=== PATIENT | female | born 1975 | race Caucasian/White ===

== ENCOUNTER 2019-05-16 09:57 | Emergency (ER) | payer BC ==
--- OUTSIDE RECORDS SUMMARY | 2019-05-16 09:58 | XMS REPORT ---
:1975 [facility] Address [address] [place] [address] Care Team Providers Name Role Phone Unavailable Unavailable Unavailable Payers Payer Name Policy Type Policy Number Effective Date Expiration Date Problems This patient has no known problems. Allergies, Adverse Reactions, Alerts Allergy Name Allergy Status Severity Reaction(s) Onset Inactive Treating Comments Type Date Date Clinician No Known DA Active U 2009- Intolerances 4-12 00:00: 00 Medications This patient has no known medications. Results Test Description Test Time Test Comments Text Results Atomic Results Result Comments - US TRANSVAGINAL W/PELVIS 2018-12-22 09:00:00 Patient Name: MARYLOU MARTINEZ Unit No: [id number] EXAMS: CPT CODE: [id number] US TRANSVAGINAL W/PELVIS 59389 PELVIC ULTRASOUND, 12/22/2018: COMPARISON: Prior pelvic ultrasound dated May 26, 2018 and January 21, 2012 CLINICAL HISTORY: RT OVARIAN CYST TECHNIQUE: Transabdominal and endovaginal scanning was performed. FINDINGS: The uterus measures 9.3 x 4.8 x 5.7 cm. The endometrial cavity is empty with a thickness of 5 mm. No myometrial abnormality is noted. The right ovary measures 5.7 x 3.3 x 3.4 cm and contains a 4.0 x 3.0 x 2.8 cm complex lesion. This lesion contains diffuse low-level homogeneous echoes as well as serpiginous internal areas of increased echogenicity. The lesion in the right ovary is unchanged to minimally increased in size from prior study. No significant Doppler flow was seen within this lesion. Differential possibilities include endometrioma versus dermoid. More aggressive the ovarian process is considered less likely. The left ovary measures 2.9 x 2.3 x 2.8 cm and contains small follicles. No free fluid is evident. CONCLUSION: 4 cm complex right ovarian lesion. Differential diagnostic possibilities include ovarian dermoid and/or endometrioma. More aggressive ovarian process is considered less likely but is not entirely excluded. Consider further assessment with CT of the pelvis to assess for fat within this lesion. at 0900 Reported and signed by: Ziyad Bella MD CC: Technologist: Rony Olivia RDMS, T Probe: [id number] Trnscrbd D/ (09) [email or web address] Orig Print D/T: S: 12/22/2018 (0903) The [facility] NAME: MARYLOU MARTINEZ [facility] Radiology Department PHYS: Va Vaca MD [address] : 1975 AGE: 42 SEX: F [place] [address] LOC: Jackie.RAD PHONE #: [phone] EXAM DATE: 12/22/2018 STATUS: REG CLI FAX #: [phone] RAD NO: [id number] Page 1 Signed Report Patient Name: MARYLOU MARTINEZ Unit No: [id number] EXAMS: CPT CODE: [id number] US TRANSVAGINAL W/PELVIS 35685 <Continued> The [facility] NAME: FARRUKH MARTINEZJEAN-PIERRE Hi Radiology Department PHYS: Va Vaca MD [address] : 1975 AGE: 42 SEX: F [place] [address] LOC: F.RAD PHONE #: [phone] EXAM DATE: 12/22/2018 STATUS: REG CLI FAX #: [phone] RAD NO: [id number] Page 2 Signed Report - US PELVIS COMPLETE 2018-12-22 09:00:00 Patient Name: MARYLOU MARTINEZ Unit No: [id number] EXAMS: CPT CODE: [id number] US PELVIS COMPLETE 36066 PELVIC ULTRASOUND, 12/22/2018: COMPARISON: Prior pelvic ultrasound dated May 26, 2018 and January 21, 2012 CLINICAL HISTORY: RT OVARIAN CYST TECHNIQUE: Transabdominal and endovaginal scanning was performed. FINDINGS: The uterus measures 9.3 x 4.8 x 5.7 cm. The endometrial cavity is empty with a thickness of 5 mm. No myometrial abnormality is noted. The right ovary measures 5.7 x 3.3 x 3.4 cm and contains a 4.0 x 3.0 x 2.8 cm complex lesion. This lesion contains diffuse low-level homogeneous echoes as well as serpiginous internal areas of increased echogenicity. The lesion in the right ovary is unchanged to minimally increased in size from prior study. No significant Doppler flow was seen within this lesion. Differential possibilities include endometrioma versus dermoid. More aggressive the ovarian process is considered less likely. The left ovary measures 2.9 x 2.3 x 2.8 cm and contains small follicles. No free fluid is evident. CONCLUSION: 4 cm complex right ovarian lesion. Differential diagnostic possibilities include ovarian dermoid and/or endometrioma. More aggressive ovarian process is considered less likely but is not entirely excluded. Consider further assessment with CT of the pelvis to assess for fat within this lesion. at 0900 Reported and signed by: Ziyad Bella MD CC: Technologist: Rony Olivia RDMS, T Probe: Trnscrbd D/ (0900) [email or web address] Orig Print D/T: S: 12/22/2018 (0903) [facility] [place] NAME: MARYLOU MARTINEZ Radiology Department PHYS: Va Vaca MD [address] : 1975 AGE: 42 SEX: F [place], [place] [address] LOC: F.RAD PHONE #: [phone] EXAM DATE: 12/22/2018 STATUS: REG CLI FAX #: [phone] RAD NO: [id number] Page 1 Signed Report Patient Name: MARYLOU MARTINEZ Unit No: [id number] EXAMS: CPT CODE: [id number] US PELVIS COMPLETE 98508 <Continued> The [facility] NAME: MARYLOU MARTINEZ Radiology Department PHYS: BOY - Va Daniel MD [address] : 1975 AGE: 42 SEX: F [place], [place] [address] LOC: F.RAD PHONE #: [phone] EXAM DATE: 12/22/2018 STATUS: REG CLI FAX #: [phone] RAD NO: [id number] Page 2 Signed Report
--- NOTE | 2019-05-16 10:35 | ER ---
Nurse's Notes [facility] Name: Leigh Ann Rothman Age: 43 yrs Sex: Female : 1975 Arrival Date: 05/16/2019 Time: 09:58 Bed 24 Private MD: Diagnosis: Acute tonsillitis Presentation: 05/16 10:10 Presenting complaint: Patient states: "I think I have strep throat" Patient reports aj1 sore throat and fever for the past 2 days. Transition of care: patient was not received from another setting of care. Onset of symptoms was 2018. Risk Assessment: Do you want to hurt yourself or someone else? Patient reports no desire to harm self or others. Initial Sepsis Screen: Does the patient meet any 2 criteria? No. Patient's initial sepsis screen is negative. Does the patient have a suspected source of infection? No. Patient's initial sepsis screen is negative. Care prior to arrival: None. 10:10 Method Of Arrival: Ambulatory aj 10:10 Acuity: RODNEY 4 aj1 Triage Assessment: 10:11 General: Appears in no apparent distress. comfortable, Behavior is calm, cooperative, aj1 appropriate for age. Pain: Pain currently is 8 out of 10 on a pain scale. EENT: Reports sore throat. Neuro: Level of Consciousness is awake, alert, obeys commands. Cardiovascular: Patient's skin is warm and dry. Respiratory: Airway is patent Respiratory effort is even, unlabored, Respiratory pattern is regular, symmetrical. 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 - Social history:: Smoking status: Patient/guardian denies using tobacco. - Ebola Screening: : Patient denies travel to an Ebola-affected area in the 21 days before illness onset. Screenin:25 Abuse screen: Denies threats or abuse. Denies injuries from another. Nutritional hb screening: No deficits noted. Tuberculosis screening: No symptoms or risk factors identified. Fall Risk None identified. Assessment: 10:25 General: Appears in no apparent distress. Behavior is calm, cooperative. Pain: Pain hb currently is 6 out of 10 on a pain scale. Neuro: Level of Consciousness is awake, alert, obeys commands, Oriented to person, place, time, situation. Cardiovascular: Capillary refill < 3 seconds Patient's skin is warm and dry. Respiratory: Airway is patent Respiratory effort is even, unlabored, Respiratory pattern is regular, symmetrical, Breath sounds are clear bilaterally. GI: No signs and/or symptoms were reported involving the gastrointestinal system. : No signs and/or symptoms were reported regarding the genitourinary system. EENT: Throat is reddened Reports pain when swallowing. Derm: Skin is pink, warm \\T\\ dry. Musculoskeletal: No signs and/or symptoms reported regarding the musculoskeletal system. Vital Signs: 10:11 BP 133 / 81; Pulse 63; Resp 18; Temp 98.6; Pulse Ox 100% on R/A; Weight 83.91 kg (R); aj1 Height 5 ft. 7 in. (170.18 cm) (R); Pain 8/10; 10:11 Body Mass Index 28.97 (83.91 kg, 170.18 cm) aj1 ED Course: 09:58 Patient arrived in ED. as 10:11 Triage completed. aj1 10:11 Arm band placed on Patient placed in waiting room, Patient notified of wait time. aj1 10:16 Meaghan Ferrara FNP-C is [facility]. kb 10:16 Ruben Singh MD is Attending Physician. kb 10:23 Sherin Chong RN is Primary Nurse. hb 10:23 Strep Sent. hb 10:25 Patient has correct armband on for positive identification. Bed in low position. Call hb light in reach. Side rails up X 1. 10:43 No provider procedures requiring assistance completed. Patient did not have IV access hb during this emergency room visit. Administered Medications: No medications were administered Outcome: 10:34 Discharge ordered by . kb 10:43 Discharged to home ambulatory. hb 10:43 Condition: stable 10:43 Discharge instructions given to patient, Instructed on discharge instructions, follow up and referral plans. medication usage, Demonstrated understanding of instructions, follow-up care, medications, Prescriptions given X 1. 10:44 Patient left the ED. hb Signatures: Meaghan Ferrara FNP-C FNP-Arti Bingham RN RN aj1 Estephania Perez Heather, RN RN hb
--- NOTE | 2019-05-16 10:36 | EDPHYS ---
Physician Documentation [facility] Name: Leigh Ann Rothman Age: 43 yrs Sex: Female : 1975 Arrival Date: 05/16/2019 Time: 09:58 Bed 24 Private MD: ED Physician Ruben Singh HPI: 05/16 10:36 This 43 yrs old Female presents to ER via Ambulatory with complaints of kb InQuicker, Sore Throat. 10:36 The patient presents with sore throat. The patient describes throat pain as constant. kb Onset: The symptoms/episode began/occurred 3 day(s) ago. Severity of symptoms: At their worst the symptoms were moderate, in the emergency department the symptoms are unchanged. Modifying factors: The symptoms are alleviated by nothing, the symptoms are aggravated by swallowing, Patient's oral intake status: good. Associated signs and symptoms: Pertinent positives: fever. The patient has not experienced similar symptoms in the past. The patient has not recently seen a physician. 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 - Social history:: Smoking status: Patient/guardian denies using tobacco. - Ebola Screening: : Patient denies travel to an Ebola-affected area in the 21 days before illness onset. ROS: 10:35 Neck: Negative for injury, pain, and swelling, Cardiovascular: Negative for chest pain, kb palpitations, and edema, Respiratory: Negative for shortness of breath, cough, wheezing, and pleuritic chest pain, Abdomen/GI: Negative for abdominal pain, nausea, vomiting, diarrhea, and constipation, MS/Extremity: Negative for injury and deformity, Skin: Negative for injury, rash, and discoloration, Neuro: Negative for headache, weakness, numbness, tingling, and seizure. 10:35 Constitutional: Positive for fever. 10:35 ENT: Positive for sore throat. Exam: 10:35 Constitutional: This is a well developed, well nourished patient who is awake, alert, kb and in no acute distress. Head/Face: Normocephalic, atraumatic. Neck: Trachea midline, no thyromegaly or masses palpated, and no cervical lymphadenopathy. Supple, full range of motion without nuchal rigidity, or vertebral point tenderness. No Meningismus. Chest/axilla: Normal chest wall appearance and motion. Nontender with no deformity. No lesions are appreciated. Cardiovascular: Regular rate and rhythm with a normal S1 and S2. No gallops, murmurs, or rubs. Normal PMI, no JVD. No pulse deficits. Respiratory: Lungs have equal breath sounds bilaterally, clear to auscultation and percussion. No rales, rhonchi or wheezes noted. No increased work of breathing, no retractions or nasal flaring. Abdomen/GI: Soft, non-tender, with normal bowel sounds. No distension or tympany. No guarding or rebound. No evidence of tenderness throughout. Skin: Warm, dry with normal turgor. Normal color with no rashes, no lesions, and no evidence of cellulitis. MS/ Extremity: Pulses equal, no cyanosis. Neurovascular intact. Full, normal range of motion. Neuro: Awake and alert, GCS 15, oriented to person, place, time, and situation. Cranial nerves II-XII grossly intact. Motor strength 5/5 in all extremities. Sensory grossly intact. Cerebellar exam normal. Normal gait. 10:35 ENT: Posterior pharynx: Airway: normal, no evidence of obstruction, Tonsils: bilaterally enlarged, with erythema, with exudate, Uvula: normal, midline, swelling, that is moderate, erythema, that is moderate, exudate, that is moderate. Vital Signs: 10:11 BP 133 / 81; Pulse 63; Resp 18; Temp 98.6; Pulse Ox 100% on R/A; Weight 83.91 kg (R); aj1 Height 5 ft. 7 in. (170.18 cm) (R); Pain 8/10; 10:11 Body Mass Index 28.97 (83.91 kg, 170.18 cm) aj1 MDM: 10:16 Patient medically screened. kb 10:33 Data reviewed: vital signs, nurses notes. Data interpreted: Pulse oximetry: on room air kb is 100 %. Interpretation: normal. Counseling: I had a detailed discussion with the patient and/or guardian regarding: the historical points, exam findings, and any diagnostic results supporting the discharge/admit diagnosis, lab results, the need for outpatient follow up, a family practitioner, to return to the emergency department if symptoms worsen or persist or if there are any questions or concerns that arise at home. ED course: Antibiotics given based on exam. 05/16 10:13 Order name: Strep; Complete Time: 10:33 aj1 05/16 10:33 Order name: Throat Culture EDMS Administered Medications: No medications were administered Disposition: 17:41 Co-signature as Attending Physician, Ruben Singh MD Did not see or evaluate the ps1 patient. Signing the chart for administrative purposes. Not an endorsement of care provided. . Disposition: 05/16/19 10:34 Discharged to Home. Impression: Acute tonsillitis. - Condition is Stable. - Discharge Instructions: Tonsillitis, [id number]-[id number]. - Prescriptions for Augmentin 875- 125 mg Oral Tablet - take 1 tablet by ORAL route every 12 hours for 10 days; 20 tablet. - Medication Reconciliation Form, Thank You Letter, Antibiotic Education, Prescription Opioid Use form. - Follow up: Emergency Department; When: As needed; Reason: Worsening of condition. Follow up: Private Physician; When: 2 - 3 days; Reason: Recheck today's complaints, Continuance of care, Re-evaluation by your physician. Signatures: Dispatcher [employer] EDKS Meaghan Ferrara, JAMIA CASPERP-Arti Bingham, RN RN aj1 Sherin Chong, Ruben Alas RN, MD MD ps1 Corrections: (The following items were deleted from the chart) 10:44 10:34 05/16/2019 10:34 Discharged to Home. Impression: Acute tonsillitis. Condition is hb Stable. Forms are Medication Reconciliation Form, Thank You Letter, Antibiotic Education, Prescription Opioid Use. Follow up: Emergency Department; When: As needed; Reason: Worsening of condition. Follow up: Private Physician; When: 2 - 3 days; Reason: Recheck today's complaints, Continuance of care, Re-evaluation by your physician. kb
[2019-05-16 11:37] VITALS: BP 133/81; TEMP 98.6; O2SAT 100
== END 2019-05-16 10:44 | disposition home or self-care (01) ==
LOC: ER 09:57
DX: J03.90 Acute tonsillitis, unspecified (principal); E03.9 Hypothyroidism, unspecified; K21.9 Gastro-esophageal reflux disease without esophagitis
CPT/HCPCS: 87070; 87081; 99283

== ENCOUNTER 2019-06-19 04:40 | Inpatient (IN) | payer BC ==
--- OUTSIDE RECORDS SUMMARY | 2019-06-19 04:42 | XMS REPORT ---
:1975 [facility] Address [address] [place] [address] Care Team Providers Name Role Phone Unavailable [...] 09:00:00 Patient Name: MARYLOU MARTINEZ Unit No: [id number] EXAMS: CPT CODE: [id number] US TRANSVAGINAL W/PELVIS 33359 PELVIC ULTRASOUND, 12/22/2018: COMPARISON: Prior pelvic ultrasound [...] CC: Technologist: Rony Olivia RDMS, T Probe: [id number] Trnscrbd D/ (0900) [email or web address] Orig Print D/T: S: 12/22/2018 (0903) [facility] [place] [facility] NAME: MARTINEZMARYLOU L Radiology Department PHYS: Va Vaca MD [address] : 1975 AGE: 42 SEX: F [place] [address] LOC: ArabellaRAD PHONE #: [phone] EXAM DATE: 12/22/2018 STATUS: REG CLI FAX #: [phone] RAD NO: [id number] Page 1 Signed Report Patient Name: MARYLOU MARTINEZ Unit No: [id number] EXAMS: CPT CODE: [id number] US TRANSVAGINAL W/PELVIS 21443 <Continued> [facility] NAME: MAXIM MARTINEZANGEL Hi Radiology Department PHYS: Va Vaca MD [address] : 1975 AGE: 42 SEX: F [place] [address] LOC: Jackie.RAD PHONE #: [phone] EXAM DATE: 12/22/2018 STATUS: REG CLI FAX #: [phone] RAD NO: [id number] Page 2 Signed Report - US PELVIS COMPLETE 2018-12-22 09:00:00 Patient Name: MARYLOU MARTINEZ Unit No: [id number] EXAMS: CPT CODE: [id number] US PELVIS COMPLETE 49776 PELVIC ULTRASOUND, 12/22/2018: COMPARISON: Prior pelvic ultrasound [...] Bella MD CC: Technologist: Rony Olivia RDMS, RVT Probe: Trnscrbd D/ (09) [email or web address] Orig Print D/T: S: 12/22/2018 (0903) [facility] NAME: MARYLOU MARTINEZ Radiology Department PHYS: BOY - Va Daniel MD [address] : 1975 AGE: 42 SEX: F [place], [place] [address] LOC: ArabellaRAD PHONE #: [phone] EXAM DATE: 12/22/2018 STATUS: REG CLI FAX #: [phone] RAD NO: [id number] Page 1 Signed Report Patient Name: MARYLOU MARTINEZ Unit No: [id number] EXAMS: CPT CODE: [id number] US PELVIS COMPLETE 22232 <Continued> [facility] NAME: MARYLOU MARTINEZ Radiology Department PHYS: Va Vaca MD [address] : 1975 AGE: 42 SEX: F [place], [place] [address] LOC: ArabellaRAD PHONE #: [phone] EXAM DATE: 12/22/2018 STATUS: REG CLI FAX #: [phone] RAD NO: [id number] Page 2 Signed Report
[2019-06-19 06:07] LABS: Urine Blood 1+ (NEG); Urine Glucose NEGATIVE (NEG); Urine Protein TRACE (NEG); Urine pH 7.5 (5.0-7.0)
[2019-06-19] MEDS ORDERED: ONDANSETRON 4 MG/2 ML VIAL ONE (06:38)
[2019-06-19] MEDS ORDERED: NA CHLORIDE 0.9% 0 ML ONE (06:38)
[2019-06-19] MEDS ORDERED: MORPHINE 4 MG/ML SYR ONE ×2 (06:38→12:07)
[2019-06-19 06:49] LABS: Absolute Lymphocytes (CBC) 0.6 K/uL (0.7-4.9); Basophils % 0.6 % (0-1.3); Hematocrit 39.5 % (36.0-45.0); Lymphocytes % 4.6 % (15.3-44.8); MPV 7.5 fL (7.6-11.3); RBC Red Blood Cell Count 4.32 M/uL (3.86-4.86)
[2019-06-19 06:56] LABS: Urine Bacteria >50 /HPF (<20); Urine Culture Reflex Order NOT NEEDED; Urine Mucus 3+ /HPF (NONE SEEN)
[2019-06-19 07:20] LABS: Bilirubin Direct 0.1 mg/dL (0-0.2); Bilirubin Total 0.5 mg/dL (0.2-1.0); Potassium 3.8 mmol/L (3.5-5.1); Protein, Total 7.4 g/dL (6.4-8.2)
--- NOTE | 2019-06-19 08:08 | RAD REPORT ---
EXAM DESCRIPTION: CT - Abdomen Pelvis W Contrast - 06/19/2019 7:36 am CLINICAL HISTORY: ABD PAIN, back pain, history of renal cancer, prior and gastric sleeve COMPARISON: Abdomen Pelvis W Contrast dated 12/03/2017; Transvaginal Study Probe dated 05/26/2018; Pelvis Complete dated 05/26/2018; Abdomen Exam Complete dated 05/26/2018 TECHNIQUE: Biphasic, helical CT imaging of the abdomen and pelvis was performed following 100 ml non -ionic IV contrast. No oral contrast. All CT scans are performed using dose optimization technique as appropriate and may include automated exposure control or mA/KV adjustment according to patient size. FINDINGS: No suspicious findings in the lung bases. The liver, spleen, and pancreas show no suspicious findings. Gallbladder and biliary tree are also wi thout suspicious finding. Postsurgical changes are present to the lower pole left kidney, site renal cell carcinoma removal. Th ere is subtle heterogeneity of enhancement of the left renal parenchyma. A mild congested or edematou s appearance is seen to the fat in the left renal hilum. Small 12 millimeter low-density mass along t he capsule posterior mid left kidney noted and similar to comparison. There is no hydronephrosis. The re does appear to be mild edema and stranding along the brown of the left renal pelvis and ureter. No new or enlarging solid mass of either kidney. Urinary bladder is mostly contracted. No bladder calcu li. Punctate air densities are present along the wall of the nondependent portion of the bladder. No adrenal abnormalities. No uterine abnormality seen. Left ovary is unremarkable. The right ovary is enlarged. Prior 2018 ultr asound imaging showed a 4-4.5 centimeter heterogeneous mass. Hemorrhagic cyst was suspected. However, this mass has not resolved. Size has remained stable over 18 months. This would favor a benign ovari an mass etiology. Gastric sleeve surgical changes are noted. A small hiatal hernia is present. No dilated large or smal l bowel loops. No appendicitis findings. No free air or pneumatosis otherwise noted. No hernia, mas s or bulky lymphadenopathy. No fracture or acute bone finding. No suspicion for bony metastatic disease. Disc bulge at L5-S1 cont acts both S1 nerve roots. No central spinal stenosis or significant foraminal encroachment at this le arias. Midline and right-sided disc herniation is present at L4-5 flattening the thecal sac. No central spinal stenosis. IMPRESSION: Left kidney and adjacent fatty tissues show findings suspicious for an early pyelonephri tis and ureteritis. Air in the urinary bladder could indicate bladder infection. This air may have also been introduced i f the patient underwent any in- and out catheterization procedure. Correlation is needed with such procedures and lab lab findings of cystitis, ureteritis or pyelonephr itis. Approximately 4-4.5 centimeter right ovarian mass has not changed in the 18 months since November 2017 im aging. Imaging findings are nonspecific. Stability over this interval would favor a benign process. Midline and right-sided L4-5 disc herniation and prominent disc bulge at L5-S1.
[2019-06-19] MEDS ORDERED: CEFTRIAXONE/SWI 1gm 1 GM/10 ML SYR ONE (08:18)
[2019-06-19] MEDS ORDERED: NA CHLORIDE 0.9% 1,000 ML ONE ×3 (08:26→12:01)
--- NOTE | 2019-06-19 09:00 | ER ---
Nurse's Notes [facility] Name: Leigh Ann Rothman Age: 43 yrs Sex: Female : 1975 Arrival Date: 06/19/2019 Time: 04:43 Bed 5 Private MD: Elsa Dickerson K Diagnosis: Acute tubulo-interstitial nephritis Presentation: 06/19 04:45 Presenting complaint: Patient states: that 2 days ago she started to have lower back fc pain. Then this am she woke up with lower back pain, left lower abd pain and a headache. Thinks she may have the flu. Denies any N/V/D. Transition of care: patient was not received from another setting of care. Onset of symptoms was June 17, 2019. Risk Assessment: Do you want to hurt yourself or someone else? Patient reports no desire to harm self or others. Initial Sepsis Screen: Does the patient meet any 2 criteria? No. Patient's initial sepsis screen is negative. Does the patient have a suspected source of infection? No. Patient's initial sepsis screen is negative. Care prior to arrival: Medication(s) given: Motrin, 600 mg, at 0400. 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 - Social history:: Smoking status: Patient/guardian denies using tobacco, Patient uses alcohol, every other day. - Ebola Screening: : Patient negative for fever greater than or equal to 101.5 degrees Fahrenheit, and additional compatible Ebola Virus Disease symptoms Patient denies exposure to infectious person Patient denies travel to an Ebola-affected area in the 21 days before illness onset. Screenin:45 Abuse screen: Denies threats or abuse. Nutritional screening: No deficits noted. fc Tuberculosis screening: No symptoms or risk factors identified. Fall Risk None identified. Assessment: 04:59 General: Appears in no apparent distress. uncomfortable, Behavior is calm, cooperative, jd3 appropriate for age. Pain: Complains of pain in posterior aspect of left lateral abdomen and anterior aspect of left lateral abdomen Quality of pain is described as sharp. Neuro: Level of Consciousness is awake, alert, obeys commands, Oriented to person, place, time, situation, Reports headache. Cardiovascular: Capillary refill < 3 seconds Patient's skin is warm and dry. Respiratory: Airway is patent Respiratory effort is even, unlabored, Respiratory pattern is regular, symmetrical, Breath sounds are clear bilaterally. Denies cough, shortness of breath. GI: Abdomen is round non-distended, Abd is soft Abdomen is tender to palpation in left upper quadrant and left lower quadrant Patient currently denies diarrhea, nausea, vomiting. : No signs and/or symptoms were reported regarding the genitourinary system. EENT: Denies nasal congestion, nasal discharge. Derm: Skin is intact, Skin is dry, Skin is normal, Skin temperature is warm. Musculoskeletal: Circulation, motion, and sensation intact. Range of motion: intact in all extremities. 05:52 Reassessment: Patient appears in no apparent distress at this time. No changes from jd3 previously documented assessment. Patient and/or family updated on plan of care and expected duration. Pain level reassessed. Patient is alert, oriented x 3, equal unlabored respirations, skin warm/dry/pink. 06:47 Reassessment: Patient appears in no apparent distress at this time. Patient and/or lp1 family updated on plan of care and expected duration. Pain level reassessed. Patient is alert, oriented x 3, equal unlabored respirations, skin warm/dry/pink. awaiting lab results and CT scan. 08:27 Reassessment: Patient appears in no apparent distress at this time. No changes from tw2 previously documented assessment. Patient and/or family updated on plan of care and expected duration. Pain level reassessed. Patient is alert, oriented x 3, equal unlabored respirations, skin warm/dry/pink. 09:45 Reassessment: Pt noted to be crying, reports LLQ abdominal pain rated 9/10, ERP jl7 notified, see MAR for orders. 10:16 Reassessment: Patient appears in no apparent distress at this time. No changes from tw2 previously documented assessment. Patient and/or family updated on plan of care and expected duration. Pain level reassessed. Patient is alert, oriented x 3, equal unlabored respirations, skin warm/dry/pink. 11:00 Reassessment: Patient appears in no apparent distress at this time. No changes from tw2 previously documented assessment. Patient and/or family updated on plan of care and expected duration. Pain level reassessed. Patient is alert, oriented x 3, equal unlabored respirations, skin warm/dry/pink. 12:00 Reassessment: Patient appears in no apparent distress at this time. Patient is alert, ca1 oriented x 3, equal unlabored respirations, skin warm/dry/pink. Pt ambulated to restroom. 13:00 Reassessment: Patient appears in no apparent distress at this time. Patient and/or ca1 family updated on plan of care and expected duration. Pain level reassessed. Patient is alert, oriented x 3, equal unlabored respirations, skin warm/dry/pink. 14:00 Reassessment: Patient appears in no apparent distress at this time. Patient and/or ca1 family updated on plan of care and expected duration. Pain level reassessed. Patient is alert, oriented x 3, equal unlabored respirations, skin warm/dry/pink. 15:00 Reassessment: No changes from previously documented assessment. Patient and/or family ca1 updated on plan of care and expected duration. Pain level reassessed. Patient is alert, oriented x 3, equal unlabored respirations, skin warm/dry/pink. Vital Signs: 04:45 BP 126 / 78; Pulse 88; Resp 18; Temp 101.4(O); Pulse Ox 98% on R/A; Weight 83.91 kg fc (R); Height 5 ft. 6 in. (167.64 cm) (R); Pain 8/10; 05:52 BP 119 / 79; Pulse 79; Resp 18 S; Pulse Ox 97% on R/A; jd3 06:47 BP 116 / 75; Pulse 73; Resp 17 S; Pulse Ox 96% on R/A; lp1 07:38 BP 127 / 92; Pulse 73; Resp 17; Pulse Ox 99% on R/A; tw2 08:26 BP 111 / 70; Pulse 77; Resp 17; Temp 99.2(O); Pulse Ox 100% on R/A; tw2 09:30 BP 107 / 72; Pulse 76; Resp 17; Pulse Ox 99% on R/A; tw2 10:34 BP 122 / 89; Pulse 76; Resp 18 S; Temp 101(O); Pulse Ox 99% on R/A; ca1 11:05 BP 116 / 81; Pulse 83; Resp 17; Temp 101.9(O); Pulse Ox 100% on R/A; ca1 12:00 BP 120 / 66; Pulse 89; Resp 17 S; Temp 101.4(A); Pulse Ox 100% on R/A; ca1 13:00 BP 102 / 67; Pulse 84; Resp 17 S; Pulse Ox 98% on R/A; ca1 14:00 BP 101 / 67; Pulse 97; Resp 17 S; Pulse Ox 98% on R/A; ca1 15:00 BP 95 / 56; Pulse 70; Resp 17 S; Temp 98.5(O); Pulse Ox 97% on R/A; ca1 15:40 Temp 98.5(O); ca1 04:45 Body Mass Index 29.86 (83.91 kg, 167.64 cm) fc ED Course: 04:43 Patient arrived in ED. es 04:44 Elsa Dickerson MD is Private Physician. es 04:45 Arm band placed on Patient placed in an exam room, on a stretcher. fc 04:45 Patient has correct armband on for positive identification. Placed in gown. Bed in low fc position. Call light in reach. Pulse ox on. NIBP on. 04:45 No provider procedures requiring assistance completed. fc 04:57 Triage completed. fc 04:59 Chencho Meyers, ESTEFANIA is Primary Nurse. jd3 05:19 Ruben Singh MD is Attending Physician. ps1 06:15 Cachorro Henry PA is PHCP. jr8 06:30 Missed attempt(s): 22 gauge Bleeding controlled, band aid applied, catheter tip intact. fc 06:38 Inserted 18 gauge 10 cm midline to right upper arm basilic vein on first attempt. Line fc with good blood return and flushes well. 06:45 Radiology exam delayed due to lab results not completed at this time. (BUN/Creatinine). kw1 07:00 Report given to Fay MAC. jd3 07:44 CT Abd/Pelvis - IV Contrast Only In Process Unspecified. EDMS 08:27 Asad Woo DO is Hospitalizing Provider. jr8 10:34 Patient admitted, IV remains in place. ca1 Administered Medications: 06:45 Drug: NS 0.9% 1000 ml Route: IV; Rate: 1000 ml; Site: right upper arm; lp1 06:46 Drug: morphine 4 mg Route: IVP; Site: right upper arm; lp1 10:32 Follow up: Response: No adverse reaction; Pain is decreased; RASS: Alert and Calm (0) ca1 06:46 Drug: Zofran 4 mg Route: IVP; Site: right upper arm; lp1 10:33 Follow up: Response: No adverse reaction; Nausea is decreased ca1 08:20 Drug: Rocephin 1 grams Route: IV; Rate: calculated rate; Site: right upper arm; tw2 10:33 Follow up: Response: No adverse reaction; IV Status: Completed infusion ca1 08:26 Drug: NS 0.9% 1000 ml Route: IV; Rate: 100 ml/hr; Site: right upper arm; tw2 10:33 Follow up: Response: No adverse reaction; IV Status: Completed infusion; IV Intake: ca1 1000ml 15:52 Follow up: IV Status: Infusion continued upon admission ca1 09:53 Drug: Demerol 25 mg Route: IVP; Site: right upper arm; jl7 10:32 Follow up: Response: No adverse reaction; Pain is decreased; RASS: Alert and Calm (0) ca1 10:32 Drug: Tylenol 1000 mg Route: PO; ca1 12:16 Follow up: Response: No adverse reaction; Temperature is unchanged ca1 11:30 Drug: NS 0.9% 1000 ml Route: IV; Rate: 1000 ml; Site: right antecubital; ca1 12:30 Follow up: Response: No adverse reaction; IV Status: Completed infusion; IV Intake: ca1 1000ml 12:03 Drug: Ibuprofen 600 mg Route: PO; ca1 15:40 Follow up: Temp 98.5 Oral; Response: No adverse reaction; Temperature is decreased ca1 12:05 Drug: morphine 4 mg {Note: RASS - 0.} Route: IVP; Site: right antecubital; ca1 15:40 Follow up: Response: No adverse reaction; Pain is decreased; RASS: Alert and Calm (0) ca1 Intake: 10:33 IV: 1000ml; Total: 1000ml. ca1 12:30 IV: 1000ml; Total: 2000ml. ca1 Outcome: 08:27 Decision to Hospitalize by Provider. lalito 15:39 Admitted to Med/surg accompanied by tech, via wheelchair, room 207, with chart, Report ca1 called to ESTEFANIA Tariq 15:39 Condition: stable 15:39 Instructed on the need for admit. 15:51 Patient left the ED. ca1 Signatures: Dispatcher [employer] EDHortensia Queen Felicia, RN RN fc Dulce Munoz RN RN lp1 Cachorro Henry PA PA jr8 Kelsea Nieto RN RN tw2 Fay Scales RN RN jl7 Chencho Meyers RN RN jd3 Ruben Singh MD MD ps1 Judit Blackburn kw1 Joycelyn Doll RN RN ca1 Corrections: (The following items were deleted from the chart) 09:54 09:53 Demerol 25 mg IVP in right antecubital jl7 jl7 15:26 15:00 BP 95 / 56; Pulse 70bpm; Resp 17bpm; Spontaneous; Pulse Ox 97% RA; ca1 ca1
--- NOTE | 2019-06-19 09:04 | EDPHYS ---
Physician Documentation [facility] Name: Leigh Ann Rothman Age: 43 yrs Sex: Female : 1975 Arrival Date: 06/19/2019 Time: 04:43 Bed 5 Private MD: Elsa Dickerson K ED Physician Ruben Singh HPI: 06/19 07:02 This 43 yrs old Female presents to ER via Ambulatory with complaints of jr8 Headache, Abdominal Pain, Back Pain. 07:02 The patient presents with abdominal pain in the left lower quadrant. Onset: The jr8 symptoms/episode began/occurred acutely, yesterday. The symptoms radiate to left back, the left flank. Associated signs and symptoms: Pertinent positives: fever, nausea. The symptoms are described as stabbing. Modifying factors: The symptoms are alleviated by nothing, the symptoms are aggravated by nothing. Severity of pain: At its worst the pain was moderate in the emergency department the pain is unchanged. The patient has not experienced similar symptoms in the past. The patient has not recently seen a physician. 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 - Social history:: Smoking status: Patient/guardian denies using tobacco, Patient uses alcohol, every other day. - Ebola Screening: : Patient negative for fever greater than or equal to 101.5 degrees Fahrenheit, and additional compatible Ebola Virus Disease symptoms Patient denies exposure to infectious person Patient denies travel to an Ebola-affected area in the 21 days before illness onset. ROS: 07:02 Constitutional: Positive for chills, fever, malaise. jr8 07:02 Abdomen/GI: Positive for abdominal pain, nausea, Negative for vomiting, diarrhea, constipation, abdominal distension, hematemesis, black/tarry stool, rectal pain, rectal bleeding. 07:02 Back: Positive for flank pain, on the left. 07:02 All other systems are negative. Exam: 07:02 Eyes: Pupils equal round and reactive to light, extra-ocular motions intact. Lids and jr8 lashes normal. Conjunctiva and sclera are non-icteric and not injected. Cornea within normal limits. Periorbital areas with no swelling, redness, or edema. ENT: Nares patent. No nasal discharge, no septal abnormalities noted. Tympanic membranes are normal and external auditory canals are clear. Oropharynx with no redness, swelling, or masses, exudates, or evidence of obstruction, uvula midline. Mucous membranes moist. Neck: Trachea midline, no thyromegaly or masses palpated, and no cervical lymphadenopathy. Supple, full range of motion without nuchal rigidity, or vertebral point tenderness. No Meningismus. Cardiovascular: Regular rate and rhythm with a normal S1 and S2. No gallops, murmurs, or rubs. Normal PMI, no JVD. No pulse deficits. Respiratory: Lungs have equal breath sounds bilaterally, clear to auscultation and percussion. No rales, rhonchi or wheezes noted. No increased work of breathing, no retractions or nasal flaring. Skin: Warm, dry with normal turgor. Normal color with no rashes, no lesions, and no evidence of cellulitis. MS/ Extremity: Pulses equal, no cyanosis. Neurovascular intact. Full, normal range of motion. Neuro: Awake and alert, GCS 15, oriented to person, place, time, and situation. Cranial nerves II-XII grossly intact. Motor strength 5/5 in all extremities. Sensory grossly intact. Cerebellar exam normal. Normal gait. 07:02 Back: No spinal tenderness. No costovertebral tenderness. Full range of motion. 07:02 Abdomen/GI: Inspection: obese Bowel sounds: active, all quadrants, Palpation: soft, in all quadrants, mild abdominal tenderness, in the anterior aspect of left lateral abdomen and left lower quadrant, mass, is not appreciated, rebound tenderness, is not appreciated, voluntary guarding, is not appreciated, involuntary guarding, is not appreciated, no appreciated organomegaly, Indicators: McBurney's point is not tender, Ivory's sign is negative, Rovsing's sign is negative, Liver: tenderness, is not appreciated. Vital Signs: 04:45 BP 126 / 78; Pulse 88; Resp 18; Temp 101.4(O); Pulse Ox 98% on R/A; Weight 83.91 kg fc (R); Height 5 ft. 6 in. (167.64 cm) (R); Pain 8/10; 05:52 BP 119 / 79; Pulse 79; Resp 18 S; Pulse Ox 97% on R/A; jd3 06:47 BP 116 / 75; Pulse 73; Resp 17 S; Pulse Ox 96% on R/A; lp1 07:38 BP 127 / 92; Pulse 73; Resp 17; Pulse Ox 99% on R/A; tw2 08:26 BP 111 / 70; Pulse 77; Resp 17; Temp 99.2(O); Pulse Ox 100% on R/A; tw2 09:30 BP 107 / 72; Pulse 76; Resp 17; Pulse Ox 99% on R/A; tw2 10:34 BP 122 / 89; Pulse 76; Resp 18 S; Temp 101(O); Pulse Ox 99% on R/A; ca1 11:05 BP 116 / 81; Pulse 83; Resp 17; Temp 101.9(O); Pulse Ox 100% on R/A; ca1 12:00 BP 120 / 66; Pulse 89; Resp 17 S; Temp 101.4(A); Pulse Ox 100% on R/A; ca1 13:00 BP 102 / 67; Pulse 84; Resp 17 S; Pulse Ox 98% on R/A; ca1 14:00 BP 101 / 67; Pulse 97; Resp 17 S; Pulse Ox 98% on R/A; ca1 15:00 BP 95 / 56; Pulse 70; Resp 17 S; Temp 98.5(O); Pulse Ox 97% on R/A; ca1 15:40 Temp 98.5(O); ca1 04:45 Body Mass Index 29.86 (83.91 kg, 167.64 cm) fc MDM: 06:15 Patient medically screened. jr8 07:04 Differential diagnosis: diverticulitis, non-specific abd pain, Pyelonephritis, jr8 Ureterolithiasis, urinary tract infection, TOA, Colitis, PID. Data reviewed: vital signs, nurses notes, lab test result(s), radiologic studies, CT scan. Data interpreted: Pulse oximetry: on room air is 96 %. Interpretation: normal. Counseling: I had a detailed discussion with the patient and/or guardian regarding: the historical points, exam findings, and any diagnostic results supporting the discharge/admit diagnosis, lab results, radiology results. 08:25 Physician consultation: Asad Solomonbindu was called at 08:27, was contacted at 08:27, jr8 regarding admission, to the telemetry unit. consult, patient's condition, and will see patient. 06/19 05:22 Order name: Urine Dipstick--Ancillary (enter results); Complete Time: 06:15 cm6 06/19 05:22 Order name: Urine --Ancillary (enter results); Complete Time: 06:15 cm6 06/19 05:22 Order name: Urine Microscopic Only; Complete Time: 07:00 cm6 06/19 05:23 Order name: Urine Culture cm6 06/19 06:16 Order name: Basic Metabolic Panel; Complete Time: 07:25 jr8 06/19 06:16 Order name: CBC with Diff; Complete Time: 10:27 8 06/19 06:16 Order name: Creatinine for Radiology; Complete Time: 07:04 06/19 06:16 Order name: Hepatic Function; Complete Time: 07:25 jr8 06/19 06:16 Order name: Lipase; Complete Time: 07:25 8 06/19 06:17 Order name: CT Abd/Pelvis - IV Contrast Only; Complete Time: 08:16 jr8 06/19 09:16 Order name: Lactate jr8 06/19 09:16 Order name: Procalcitonin [facility] 06/19 10:04 Order name: Lactate [facility] 06/19 10:13 Order name: Manual Differential; Complete Time: 10:27 EDMS 06/19 05:22 Order name: Urine Dipstick-Ancillary (obtain specimen); Complete Time: 05:28 cm6 06/19 06:16 Order name: IV Saline Lock; Complete Time: 06:47 jr06/19 06:16 Order name: Labs collected and sent; Complete Time: 06:47 jr06/19 10:59 Order name: Diet Renal; Complete Time: 11:00 ca1 Administered Medications: 06:45 Drug: NS 0.9% 1000 ml Route: IV; Rate: 1000 ml; Site: right upper arm; lp1 06:46 Drug: morphine 4 mg Route: IVP; Site: right upper arm; lp1 10:32 Follow up: Response: No adverse reaction; Pain is decreased; RASS: Alert and Calm (0) ca1 06:46 Drug: Zofran 4 mg Route: IVP; Site: right upper arm; lp1 10:33 Follow up: Response: No adverse reaction; Nausea is decreased ca1 08:20 Drug: Rocephin 1 grams Route: IV; Rate: calculated rate; Site: right upper arm; tw2 10:33 Follow up: Response: No adverse reaction; IV Status: Completed infusion ca1 08:26 Drug: NS 0.9% 1000 ml Route: IV; Rate: 100 ml/hr; Site: right upper arm; tw2 10:33 Follow up: Response: No adverse reaction; IV Status: Completed infusion; IV Intake: ca1 1000ml 15:52 Follow up: IV Status: Infusion continued upon admission ca1 09:53 Drug: Demerol 25 mg Route: IVP; Site: right upper arm; jl7 10:32 Follow up: Response: No adverse reaction; Pain is decreased; RASS: Alert and Calm (0) ca1 10:32 Drug: Tylenol 1000 mg Route: PO; ca1 12:16 Follow up: Response: No adverse reaction; Temperature is unchanged ca1 11:30 Drug: NS 0.9% 1000 ml Route: IV; Rate: 1000 ml; Site: right antecubital; ca1 12:30 Follow up: Response: No adverse reaction; IV Status: Completed infusion; IV Intake: ca1 1000ml 12:03 Drug: Ibuprofen 600 mg Route: PO; ca1 15:40 Follow up: Temp 98.5 Oral; Response: No adverse reaction; Temperature is decreased ca1 12:05 Drug: morphine 4 mg {Note: RASS - 0.} Route: IVP; Site: right antecubital; ca1 15:40 Follow up: Response: No adverse reaction; Pain is decreased; RASS: Alert and Calm (0) ca1 Disposition: 19:01 Co-signature as Attending Physician, Ruben Singh MD Available for consultation at ps1 all times. Signing chart for administrative purposes. Not an endorsement of care. . Disposition: 06/19/19 08:27 Hospitalization ordered by Asad Woo for Inpatient Admission. Preliminary diagnosis is Acute tubulo-interstitial nephritis. - Bed requested for Telemetry/MedSurg (Inpatient). - Status is Inpatient Admission. ca1 - Condition is Stable. - Problem is new. - Symptoms have improved. UTI on Admission? Yes Signatures: Dispatcher [employer] EDDorcas Genao, RN RN dw Sarah Sanchez, RN RN fc Janet Carreno, RN RN ss Dulce Munoz, RN RN lp1 Cachorro Henry, PA PA jr8 Kelsea Nieto, RN RN tw2 Fay Scales, RN RN jl7 Ruben Singh MD MD ps1 Joycelyn Doll RN RN ca1 Justin, Amber cm6 Corrections: (The following items were deleted from the chart) 12:12 08:27 Hospitalization Ordered by Asad Woo DO for Inpatient Admission. Preliminary ss diagnosis is Acute tubulo-interstitial nephritis. Bed requested for Telemetry/MedSurg (Inpatient). Status is Inpatient Admission. Condition is Stable. Problem is new. Symptoms have improved. UTI on Admission? Yes. jr8 15:28 12:12 06/19/2019 08:27 Hospitalization Ordered by Asad Woo DO for Inpatient dw Admission. Preliminary diagnosis is Acute tubulo-interstitial nephritis. Bed requested for [facility] ER HOLD. Status is Inpatient Admission. Condition is Stable. Problem is new. Symptoms have improved. UTI on Admission? Yes. ss 15:51 15:28 06/19/2019 08:27 Hospitalization Ordered by Asad Woo DO for Inpatient ca1 Admission. Preliminary diagnosis is Acute tubulo-interstitial nephritis. Bed requested for Telemetry/MedSurg (Inpatient). Status is Inpatient Admission. Condition is Stable. Problem is new. Symptoms have improved. UTI on Admission? Yes. dw
[2019-06-19] MEDS ORDERED: MEPERIDINE HCL 25 MG/0.5 ML ONE (09:50)
[2019-06-19 10:12] LABS: Blood Morphology Comment NOT SEEN (NOT SEEN); Platelet Estimate ADEQ
[2019-06-19] MEDS ORDERED: ACETAMINOPHEN 500 MG TAB ONE (10:33)
--- NOTE | 2019-06-19 10:40 | P.HP ---
Certification for Inpatient Patient admitted to: Inpatient With expected LOS: >2 Midnights Patient will require the following post-hospital care: None Practitioner: I am a practitioner with admitting privileges, knowledge of patient current condition, hospital course, and medical plan of care. Services: Services provided to patient in accordance with Admission requirements found in Title 42 Section 412.3 of the Code of Federal Regulations Patient History Date of Service: 06/19/19 Primary Care Provider: Dr. Dickerson, [facility] Reason for admission: Left flank pain History of Present Illness: 43-year-old female with history of hypothyroidism, GERD, and prior left renal cell carcinoma with partial nephrectomy. Patient reported left flank pain over the last week. Patient with history of UTI in the past. Patient also reported some dysuria and fever. She thought her symptoms would resolve but worsened. She came to the ER for further evaluation. In the ER patient was febrile. Vital signs stable. White count 13.7, hemoglobin 13. Sodium 138, potassium 3.8, BUN of 9, creatinine 0.71 with a GFR of 86. Glucose 94. Urinalysis showed evidence of bacteria. CT scan shows early pyelonephritis and ureteritis on the left side. CT also showed 4.5 cm right ovarian mass unchanged since 18 months ago. This is likely a benign process. Midline and right-sided L4-5 disc herniation. Patient was given IV fluid bolus and started IV fluids. IV antibiotic therapy also initiated. Patient admitted for further evaluation and treatment. When I saw the patient ER, pain improved. Patient did not appear septic. Allergies No Known Allergies Allergy (Unverified 03/31/17 14:22) Home medications list reviewed: Yes - Past Medical/Surgical History Diabetic: No -: Hypothyroidism -: GERD -: History left renal cell carcinoma with partial nephrectomy -: History of gastric sleeve -: Left partial nephrectomy -: -: Gastric sleeve Psychosocial/ Personal History: Patient is . She currently works. - Family History Mother -: Cancer (Thyroid cancer) - Social History Smoking Status: Never smoker Alcohol use: Yes CD- Drugs: No Caffeine use: Yes Place of Residence: Home Review of Systems General: Fever, Chills, As per HPI Eyes: Unremarkable ENT: Unremarkable Respiratory: Unremarkable Cardiovascular: Unremarkable Gastrointestinal: Abdominal Pain, As per HPI Genitourinary: Dysuria, As per HPI Musculoskeletal: Back Pain, As per HPI Integumentary: Unremarkable Neurological: Unremarkable Lymphatics: Unremarkable Physical Examination - Physical Exam General: Alert, In no apparent distress, Oriented x3, Cooperative HEENT: Atraumatic, Normocephalic, Mucous membr. moist/pink Neck: Supple Respiratory: Clear to auscultation bilaterally, Normal air movement Cardiovascular: Normal pulses, Regular rate/rhythm Gastrointestinal: Normal bowel sounds, Soft and benign, Non-distended, No masses , No rebound, No guarding, Tenderness (Left flank pain) Musculoskeletal: No warmth, Tenderness (Left flank pain and back pain) Integumentary: Other (As above) Neurological: Normal speech, Normal strength at 5/5 x4 extr, Normal tone, Normal affect - Studies Laboratory Data (last 24 hrs) 06/19/19 06:37: Creatinine 0.71 06/19/19 06:37: WBC 13.7 H, Hgb 13.3, Hct 39.5, Plt Count 306 06/19/19 06:37: Sodium 138, Potassium 3.8, BUN 9, Creatinine 0.74, Glucose 94, Total Bilirubin 0.5, AST 21, ALT 19, Alkaline Phosphatase 96, Lipase 89 Assessment and Plan - Plan Impression: Left pyelonephritis with ureteritis History left renal cell carcinoma with prior resection Hypothyroidism GERD with history of gastric sleeve 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 Await blood and urine culture results anticipate improvement over the next 2-3 days. Will monitor closely. History left renal cell carcinoma with prior resection: Patient with prior surgery. Continue as above. Hypothyroidism: Restart home medication. GERD with history of gastric sleeve: Continue home medication. 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 Patient may follow up with orthopedics or pain management as an outpatient. 4.5 cm right ovarian mass unchanged since 2018 likely hemorrhagic cyst: This is likely benign. Will recommend gynecology evaluation as an outpatient to further evaluate. Discharge Plan: Home Plan to discharge in: 72 Hours - Advance Directives Does patient have a Living Will: No Does patient have a Durable POA for Healthcare: No - Code Status/Comfort Care Code Status Assessed: Yes (Patient is full code) Time Spent Managing Pts Care (In Minutes): 55
[2019-06-19 11:20] VITALS: BMI 29.8
[2019-06-19] MEDS ORDERED: IBUPROFEN 200 MG TAB PO ONE (12:06)
[2019-06-19] MEDS ORDERED: IBUPROFEN 400 MG TAB ONE (12:07)
[2019-06-19] MEDS ORDERED: ONDANSETRON 4 MG/2 ML VIAL IV PRN (16:00)
[2019-06-19] MEDS: HYDROCODONE/APAP 7.5/325 MG TAB PO PRN (16:54)
[2019-06-19] MEDS: NA CHLORIDE 0.9% 1,000 ML IV SCH (18:25)
[2019-06-19] MEDS: ENOXAPARIN 40 MG/0.4 ML SQ SCH (18:25)
[2019-06-19] MEDS ORDERED: POTASSIUM CL SA 10 MEQ TAB PO ONE (19:00)
[2019-06-19] MEDS ORDERED: ACETAMINOPHEN 500 MG TAB PO ONE (19:23)
[2019-06-19] MEDS: MORPHINE 2 MG/ML SYR IV PRN (19:43)
[2019-06-19] MEDS: CEFTRIAXONE/SWI 1gm 1 GM/10 ML SYR IVP SCH (21:37)
[2019-06-20] MEDS: HYDROCODONE/APAP 7.5/325 MG TAB PO PRN ×5 (00:15→23:43)
[2019-06-20] MEDS: NA CHLORIDE 0.9% 1,000 ML IV SCH ×2 (03:07→10:11)
[2019-06-20 05:50] LABS: Absolute Lymphocytes (CBC) 0.9 K/uL (0.7-4.9); Basophils % 0.2 % (0-1.3); Hematocrit 33.8 % (36.0-45.0); MPV 7.5 fL (7.6-11.3); RBC Red Blood Cell Count 3.67 M/uL (3.86-4.86)
[2019-06-20] MEDS: LEVOTHYROXINE SOD 0.1 MG TAB PO SCH (06:28)
[2019-06-20] MEDS ORDERED: NA CHLORIDE 0.9% 1,000 ML IV ONE (06:51)
[2019-06-20 07:14] LABS: BUN Blood Urea Nitrogen 7 mg/dL (7-18); Bicarbonate 23 mmol/L (21-32); Glucose Level 76 mg/dL (74-106); Magnesium 1.8 mg/dL (1.8-2.4); Potassium 4.2 mmol/L (3.5-5.1); Sodium Level 142 mmol/L (136-145)
[2019-06-20] MEDS ORDERED: MAGNESIUM SULFATE 1 gm IVPB 1 GM/100 ML BAG IV ONE (08:00)
[2019-06-20] MEDS: PANTOPRAZOLE 40MG TABLET PO SCH (09:00)
[2019-06-20] MEDS: ENOXAPARIN 40 MG/0.4 ML SQ SCH ×2 (09:00→09:17)
[2019-06-20] MEDS: CEFTRIAXONE/SWI 1gm 1 GM/10 ML SYR IVP SCH ×2 (09:18→21:13)
--- NOTE | 2019-06-20 11:20 | P.PN ---
Subjective Date of Service: 06/20/19 Primary Care Provider: Dr. Dickerson, [facility] Chief Complaint: Left flank pain Subjective: Improving (Still with mild pain) Physical Examination - Vital Signs Temperature: 98.0 F Blood Pressure: 102/61 Pulse: 70 Respirations: 17 Pulse Ox (%): 98 - Physical Exam General: Alert, In no apparent distress, Oriented x3, Cooperative HEENT: Atraumatic Neck: Supple Respiratory: Clear to auscultation bilaterally, Normal air movement Cardiovascular: Normal pulses, Regular rate/rhythm Gastrointestinal: Normal bowel sounds, Soft and benign, Non-distended, Tenderness (Mild pain to the flank but improved) Neurological: Normal speech, Normal strength at 5/5 x4 extr, Normal tone - Studies Medications List Reviewed: Yes Assessment & Plan Discharge Plan: Home Plan to discharge in: 48 Hours Physician Review Additional Text: Impression: Left pyelonephritis with ureteritis History left renal cell carcinoma with prior resection Hypothyroidism GERD with history of gastric sleeve 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 Encourage ambulation. Will provide incentive spirometer. Patient given IV fluid bolus this morning. Will adjust IV fluids accordingly. Await blood and urine culture. Anticipate improvement over the next 2-3 days. Likely discharge at that time once clinically stable, urine culture results obtain, and without fever for at least 24-48 hr. I will turn the service over to the hospitalist team tomorrow. I will go the plan of care with him. Case discussed in detail with patient and . Patient will need urology evaluation as an outpatient to further monitor and address. History left renal cell carcinoma with prior resection: Patient with prior surgery. Continue as above. Patient will need urology evaluation as an outpatient to further monitor. Hypothyroidism: Continue medication. GERD with history of gastric sleeve: Continue home medication. 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 Patient may follow up with orthopedics or pain management as an outpatient. Patient has seen neuro surgery in the past but no intervention required. 4.5 cm right ovarian mass unchanged since 2018 likely hemorrhagic cyst: This is likely benign. Will recommend gynecology evaluation as an outpatient to further evaluate. Time Spent Managing Pts Care (In Minutes): 55
[2019-06-20] MEDS: DIPHENHYDRAMINE 50 MG/ML VIAL IV PRN ×2 (11:23→22:05)
[2019-06-20] MEDS: TRAMADOL HCL 50 MG TAB PO PRN ×2 (12:45→21:10)
[2019-06-20] MEDS: NACHLORIDE 0.45% 1,000 ML IV SCH ×2 (12:46→21:12)
[2019-06-20] MEDS ORDERED: DIPHENHYDRAMINE 50 MG/ML VIAL IV SCH (14:00)
[2019-06-20] MEDS: ACETAMINOPHEN 500 MG TAB PO PRN (15:46)
[2019-06-20] MEDS: MORPHINE 2 MG/ML SYR IV PRN (15:55)
[2019-06-21 03:37] VITALS: O2SAT 97
[2019-06-21] MEDS: ACETAMINOPHEN 500 MG TAB PO PRN (03:53)
[2019-06-21] MEDS: NACHLORIDE 0.45% 1,000 ML IV SCH ×2 (03:54→13:19)
[2019-06-21] MEDS: MORPHINE 2 MG/ML SYR IV PRN (03:57)
[2019-06-21] MEDS: LEVOTHYROXINE SOD 0.1 MG TAB PO SCH (05:27)
[2019-06-21 05:56] LABS: Absolute Lymphocytes (CBC) 0.8 K/uL (0.7-4.9); Basophils % 0.2 % (0-1.3); Hematocrit 35.2 % (36.0-45.0); Lymphocytes % 5.5 % (15.3-44.8); MPV 7.9 fL (7.6-11.3); RBC Red Blood Cell Count 3.83 M/uL (3.86-4.86)
[2019-06-21 06:01] LABS: BUN Blood Urea Nitrogen 4 mg/dL (7-18); Bicarbonate 28 mmol/L (21-32); Glucose Level 72 mg/dL (74-106); Magnesium 1.9 mg/dL (1.8-2.4); Potassium 3.7 mmol/L (3.5-5.1); Sodium Level 139 mmol/L (136-145)
[2019-06-21] MEDS: DIPHENHYDRAMINE 50 MG/ML VIAL IV PRN (08:20)
[2019-06-21] MEDS: PANTOPRAZOLE 40MG TABLET PO SCH (08:24)
[2019-06-21] MEDS: ENOXAPARIN 40 MG/0.4 ML SQ SCH (08:25)
[2019-06-21] MEDS: CEFTRIAXONE/SWI 1gm 1 GM/10 ML SYR IVP SCH (08:26)
[2019-06-21] MEDS: TRAMADOL HCL 50 MG TAB PO PRN (08:27)
[2019-06-21] MEDS ORDERED: SMZ./TMP. 800/160 MG TABLET PO SCH (09:00)
[2019-06-21] MEDS ORDERED: POTASSIUM CL SA 10 MEQ TAB PO ONE (09:00)
[2019-06-21 09:36] VITALS: BP 117/70; TEMP 98.6
--- NOTE | 2019-06-21 12:10 | P.PN ---
Subjective Date of Service: 06/21/19 Primary Care Provider: Dr. Dickerson, [facility] Chief Complaint: Left flank pain Subjective: Improving, Doing well (Patient doing much better today. Less pain noted. Patient has ambulated well. Last fever yesterday mid day.) Physical Examination - Vital Signs Temperature: 98.6 F Blood Pressure: 117/70 Pulse: 76 Respirations: 18 Pulse Ox (%): 98 - Physical Exam General: Alert, In no apparent distress, Oriented x3, Cooperative HEENT: Atraumatic Neck: Supple Respiratory: Clear to auscultation bilaterally, Normal air movement Cardiovascular: Normal pulses, Regular rate/rhythm Gastrointestinal: Normal bowel sounds, Soft and benign, Non-distended, No tenderness, No masses, No rebound, No guarding Musculoskeletal: No erythema, No tenderness, No warmth Neurological: Normal speech, Normal strength at 5/5 x4 extr, Normal tone - Studies Microbiology Data (last 24 hrs): 06/19/19 05:18 Clean Catch Urine [place] Count - Final >100,000 CFU/ML. 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 Continue ambulation. Continue incentive spirometer. Encourage oral intake. Possible discharge later today if significantly improved. Discussed plan of care with patient at length with present. Will reassess this afternoon. If discharge patient will require urology evaluation as an outpatient to further monitor. Patient will require repeat urine culture after treatment to monitor resolution. History left renal cell carcinoma with prior resection: Patient with prior surgery. Continue as above. Patient will need urology evaluation as an outpatient to further monitor. Hypothyroidism: Continue medication. GERD with history of gastric sleeve: Continue home medication. 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 Patient may follow up with orthopedics or pain management as an outpatient. Patient has seen neuro surgery in the past but no intervention required. 4.5 cm right ovarian mass unchanged since 2018 likely hemorrhagic cyst: This is likely benign. Patient has seen gynecology in the past for this. She is due for a vaginal ultrasound here soon. Will recommend gynecology evaluation as an outpatient to further evaluate. Time Spent Managing Pts Care (In Minutes): 55
--- NOTE | 2019-06-21 14:24 | P.DS ---
Admission Date: 06/19/19 Discharge Date: 06/21/19 Primary Care Provider: Dr. Dickerson, [facility] Disposition: ROUTINE DISCHARGE Discharge Condition: GOOD Reason for Admission: Left flank pain Consultations: none Procedures: CT scan: Showed Left pyelonephritis with ureteritis 4.5 cm right ovarian mass, unchanged since 2018, likely hemorrhagic cyst Medical problem list: Left Pyelonephritis with ureteritis, urine culture positive for E. Coli History of left renal cell carcinomat with prior resection Hypothyroidism DDD, DJD of the lumbar spine 4.5 cm right ovarian hemorrhagic cyst Brief History of Present Illness: 43-year-old female with history of hypothyroidism, GERD, and prior left renal cell carcinoma with partial nephrectomy. Patient reported left flank pain over the last week. Patient with history of UTI in the past. Patient also reported some dysuria and fever. She thought her symptoms would resolve but worsened. She came to the ER for further evaluation. In the ER patient was febrile. Vital signs stable. White count 13.7, hemoglobin 13. Sodium 138, potassium 3.8, BUN of 9, creatinine 0.71 with a GFR of 86. Glucose 94. Urinalysis showed evidence of bacteria. CT scan shows early pyelonephritis and ureteritis on the left side. CT also showed 4.5 cm right ovarian mass unchanged since 18 months ago. This is likely a benign process. Midline and right-sided L4-5 disc herniation. Patient was given IV fluid bolus and started IV fluids. IV antibiotic therapy also initiated. Patient admitted for further evaluation and treatment. When I saw the patient ER, pain improved. Patient did not appear septic. Hospital Course: Patient was admitted for treatment of left pyelonephritis/ureteritis. She did well during stay. Pain improved. Urine culture was positive for E. coli. At discharge, she will continue with Bactrim DS one pill twice daily for 14 days. She will need to follow up with Urology to establish care and further address her pyelonephritis. Recommend to recheck urine culture after treatment to monitor resolution. Follow up with PCP to follow up this hospitalization. Patient with history of left renal cell carcinoma with resection. Recommend follow up with her cancer team as directed. Patient with Hypothyroidism. She may continue with her medication. Patient with 4.5 cm right ovarian hemorrhagic cyst unchanged since 2018. She has seen [facility] for this. She will need to follow up with TAPER/FINISHER have a repeat Vaginal US to further address. CT showed DDD, DJD of the Lumbar spine. Recommend no heavy lifting, pulling or pushing. Follow up with her PCP to further address. Vital Signs/Physical Exam: Temp Pulse Resp BP Pulse Ox 98.6 F 76 18 117/70 98 06/21/19 12:10 06/21/19 12:10 06/21/19 12:10 06/21/19 12:10 06/21/19 12:10 General: Alert, In no apparent distress, Oriented x3, Cooperative HEENT: Atraumatic Neck: Supple Respiratory: Clear to auscultation bilaterally, Normal air movement Cardiovascular: Normal pulses, Regular rate/rhythm Gastrointestinal: Normal bowel sounds, Soft and benign, Non-distended, No tenderness, No masses Neurological: Normal speech, Normal strength at 5/5 x4 extr, Normal tone, Normal affect Laboratory Data at Discharge: WBC 14.1 K/uL (4.3-10.9) H 06/21/19 05:11 Hgb 11.8 g/dL (12.0-15.0) L 06/21/19 05:11 Hct 35.2 % (36.0-45.0) L 06/21/19 05:11 Plt Count 288 K/uL (152-406) D 06/21/19 05:11 Sodium 139 mmol/L (136-145) 06/21/19 05:11 Potassium 3.7 mmol/L (3.5-5.1) 06/21/19 05:11 BUN 4 mg/dL (7-18) L 06/21/19 05:11 Creatinine 0.59 mg/dL (0.55-1.3) 06/21/19 05:11 Glucose 72 mg/dL (74-106) L 06/21/19 05:11 Magnesium 1.9 mg/dL (1.8-2.4) 06/21/19 05:11 Total Bilirubin 0.5 mg/dL (0.2-1.0) 06/19/19 06:37 AST 21 U/L (15-37) 06/19/19 06:37 ALT 19 U/L (12-78) 06/19/19 06:37 Alkaline Phosphatase 96 U/L (45-117) 06/19/19 06:37 Lipase 89 U/L (73-393) 06/19/19 06:37 Home Medications: Esomeprazole Magnesium [Nexium] 20 mg PO DAILY 06/19/19 Levothyroxine Sodium [Synthroid] 200 mcg PO [id number] 06/19/19 Smz./Tmp. [Bactrim Ds 800 MG/160 MG*] 1 tab PO BID #28 tab 06/21/19 traMADol HCL [Ultram*] 50 mg PO TID PRN #15 tab 06/21/19 New Medications: Smz./Tmp. [Bactrim Ds 800 MG/160 MG*] 1 tab PO BID #28 tab traMADol HCL [Ultram*] 50 mg PO TID PRN #15 tab PRN Reason: Pain Scale 2-4 (Mild) Patient Discharge Instructions: 1. DC home. 2. Continue with Bactrim DS for 14 days. Follow up with PCP in 1-2 weeks. Will need repeat Urine culture to monitor resolution. 3. Follow up with Urology to further address. Diet: AHA Activity: Ad luz marina Time spent managing pt's care (in minutes): 55
== END 2019-06-21 16:05 | disposition home or self-care (01) | DRG 690 ==
LOC: ER 04:40 → ERHOLD 10:31 → 2ND 15:40
PROVIDERS: ADMIT Family Medicine; ATTEND Internal Medicine
DX: N10 Acute pyelonephritis (principal); C64.2 Malignant neoplasm of left kidney, except renal pelvis; B96.20 Unspecified Escherichia coli [E. coli] as the cause of diseases classified elsewhere; N28.89 Other specified disorders of kidney and ureter; E03.9 Hypothyroidism, unspecified; M51.36 Other intervertebral disc degeneration, lumbar region; N83.201 Unspecified ovarian cyst, right side; K21.9 Gastro-esophageal reflux disease without esophagitis; Z90.5 Acquired absence of kidney
CPT/HCPCS: 36415; 74177; 80048; 80076; 81003; 81015; 81025; 83605; 83690; 83735; 84145; 85025; 87040; 87077; 87086; 87088; 87186; 96361; 96365; 96366; 96375; 99285; J0696; J1200; J1650; J2175; J2270; J2405; J3475; J7030; Q9967

== ENCOUNTER 2019-10-25 07:43 | Emergency (ER) | payer BC ==
--- OUTSIDE RECORDS SUMMARY | 2019-10-25 07:47 | XMS REPORT ---
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
--- OUTSIDE RECORDS SUMMARY | 2019-10-25 07:47 | XMS REPORT ---
:1975 Author Organization Formerly [facility] t Address [address] [place] [address] Care Team Providers Name Role Phone Unavailable Unavailable Unavailable Payers Payer Name Policy Type Policy Number Effective Date Expiration D ate Problems This patient has no known problems. Allergies, Adverse Reactions, Alerts Allergy Name Allergy Status Severity Reaction(s) Onset Inactive Treat ing Comments Type Date Date Clinician No Known DA Active U 2009- Intolerances 4-12 00:00: 00 Medications This patient has no known medications. Results Test Description Test Time Test Comments Text Results Atomic Results Result Comments - US TRANSVAGINAL W/PELVIS 2018-12-22 09:00:00 Patient Name: MARYLOU MARTINEZ Unit No: [id number] EXAMS: CPT C ODE: [id number] US TRANSVAGINA L W/PELVIS 7 6830 PELVIC ULTRASOUN D, 12/22/2018: COMPARISON: Pr ior pelvic ultrasound dated Dece 2017 and January 21, 2012 CLINICAL HISTORY: RT OVARIAN CYST TECHNIQUE: Transabdominal and endovaginal scanning was performed. FINDINGS: Th e uterus measures 9.3 x 4.8 x 5.7 cm. The endometrial cavity i s empty with a thickness of 5 mm. No myometrial abnormality is noted. The right ovary measures 5.7 x 3.3 x 3.4 cm and contains a 4.0 x 3.0 x 2.8 cm complex lesion. This lesion contains diffuse low-level homogeneous echoes as well a s serpiginous internal areas o f increased echogenicity. The lesion in the right ovary is unchanged to minimally incr eased in size from prior study. No significant Doppler flow was seen within this lesion. Differen tial possibilities include endometrioma versus dermoid. More aggressive the ovarian proce ss is considered less likely. The left ovary measures 2.9 x 2. 3 x 2.8 cm and contains small follicles. No free fluid is evident. CONCLUSION: 4 c m complex right ovarian lesion . Differential diagnostic possibilities include ovaria n dermoid and/or endometrioma. More aggressive ovarian process i s considered less likely but i s not entirely excluded. Consider further assessment with CT o f the pelvis to assess for fat wi thin this lesion. at 090 0 Reported and s igned by: Ziyad Bella MD CC: Technologist: Rony Olivia RDMS, T Pro be: [id number] Trnscrbd D/ (0900) [email or web address] Orig Prin t D/T: S: 12/22/2018 (0903) [facility] NAME: MARYLOU MARTINEZ Radiology Department PHYS: Va Lizarraga MD [address] : 1975 AG E: 42 SEX: F [place], [place] [address] LOC: F.RAD PHONE #: [phone] EXAM DATE: 12/22/2018 STATU S: REG CLI FAX #: [phone] RAD NO: [id number] Pa ge 1 Signed Re port Patient Name: FARRUKH MARTINEZ Unit No: [id number] EXAMS: CPT CO DE: [id number] US TRANSVAGINAL W/PELVIS 7 5028 <Continued> [facility] NAME: MARYLOU MARTINEZ Radiology Department PHYS: BOY - Va Daniel MD [address] : 1975 AGE: 42 SEX: F [place], [place] [address] LOC: LENNY PHONE #: [phone] EXAM DATE: 12/22/2018 STATUS: REG NIMO FAX #: [phone] R AD NO: [id number] Page 2 Signed Report - US PELVIS COMPLETE 2018-12-22 09:00:00 Patient Name : MARYLOU MARTINEZ Unit No: [id number] EXAMS: CPT C ODE: [id number] US PELVIS COMP LETE 80549 PELVIC ULTRASOUND, 12/22/2018: COMPARISON: Pr ior pelvic ultrasound dated Dece 2017 and January 21, 2012 CLINICAL HISTORY: RT OVARIAN CYST TECHNIQUE: Transabdominal and endovaginal scanning was performed. FINDINGS: Th e uterus measures 9.3 x 4.8 x 5.7 cm. The endometrial cavity i s empty with a thickness of 5 mm. No myometrial abnormality is noted. The right ovary measures 5.7 x 3.3 x 3.4 cm and contains a 4.0 x 3.0 x 2.8 cm complex lesion. This lesion contains diffuse low-level homogeneous echoes as well a s serpiginous internal areas o f increased echogenicity. The lesion in the right ovary is unchanged to minimally incr eased in size from prior study. No significant Doppler flow was seen within this lesion. Differen tial possibilities include endometrioma versus dermoid. More aggressive the ovarian proce ss is considered less likely. The left ovary measures 2.9 x 2. 3 x 2.8 cm and contains small follicles. No free fluid is evident. CONCLUSION: 4 c m complex right ovarian lesion . Differential diagnostic possibilities include ovaria n dermoid and/or endometrioma. More aggressive ovarian process i s considered less likely but i s not entirely excluded. Consider further assessment with CT o f the pelvis to assess for fat wi thin this lesion. at 090 0 Reported and s igned by: Ziyad Bella MD CC: Technologist: Rony Olivia RDMS, RVT Pro be: Trnscrbd D/ (0900) t.[email or web address] Orig Prin t D/T: S: 12/22/2018 (0903) [facility] NAME: FARRUKH MARTINEZJEAN-PIERRE Hi Radiology Department PHYS: Va Vaca MD [address] : 1975 AG E: 42 SEX: F [place] [address] LOC: F.RAD PHONE #: [phone] EXAM DATE: 12/22/2018 STATU S: REG CLI FAX #: [phone] RAD NO: [id number] Pa ge 1 Signed Re port Patient Name: FARRUKH MARTINEZ JEAN-PIERRE Hi Unit No: [id number] EXAMS: CPT CO DE: [id number] US PELVIS COMPL ETE 38445 <Continued> [facility] NAME: MAXIM MARTINEZANGEL Hi Radiology Department PHYS: Va Vaca MD [address] : 1975 AGE: 42 SEX: F [place] [address] LOC: F.RAD PHONE #: [phone] EXAM DATE: 12/22/2018 STATUS: REG CLI FAX #: [phone] R AD NO: [id number] Page 2 Signed Report
--- OUTSIDE RECORDS SUMMARY | 2019-10-25 07:47 | XMS REPORT | Continuity of Care Document ---
:1975 Author Organization [facility] Care Team Providers Name Role Phone [facility] Unavailable Un available Problems Problem Status Onset Classification Date Comments Sourc e Date Reported Low back pain Active Problem 01/13/2019 [facility] Other Active Problem 01/13/2019 [facility] abnormal findings of blood chemistry Other chronic Active Problem 01/13/2019 [facility] Pain in joint, Active Problem 01/13/2019 [facility] multiple sites of [facility] u Bruce's Active Problem 01/13/2019 [facility] [place] Medications No Data Provided for This Section Allergies, Adverse Reactions, Alerts No Known Medication Allergies Immunizations No Data Provided for This Section Results No Data Provided for This Section Pathology Reports No Data Provided for This Section Diagnostic Reports No Data Provided for This Section Consultation Notes No Data Provided for This Section Discharge Summaries No Data Provided for This Section History and Physicals No Data Provided for This Section Vital Signs No Data Provided for This Section Encounters No Data Provided for This Section Procedures No Data Provided for This Section Assessment and Plan No Data Provided for This Section Plan of Care No Data Provided for This Section Social History No Data Provided for This Section Family History No Data Provided for This Section Advance Directives No Data Provided for This Section Functional Status No Data Provided for This Section
[2019-10-25 08:27] LABS: Urine Blood 2+ (NEG); Urine Glucose NEGATIVE (NEG); Urine Protein NEGATIVE (NEG); Urine Specific Gravity 1.015 (1.005-1.030); Urine pH 5.5 (5.0-7.0)
[2019-10-25 08:41] LABS: Absolute Lymphocytes (CBC) 0.7 K/uL (0.7-4.9); Basophils % 0.2 % (0-1.3); Hematocrit 43.8 % (36.0-45.0); Lymphocytes % 4.2 % (15.3-44.8); MPV 7.7 fL (7.6-11.3); RBC Red Blood Cell Count 4.74 M/uL (3.86-4.86)
[2019-10-25] MEDS ORDERED: CEFTRIAXONE/SWI 1gm 1 GM/10 ML SYR ONE (08:43)
[2019-10-25] MEDS ORDERED: NA CHLORIDE 0.9% 1,000 ML ONE (08:43)
[2019-10-25 09:02] LABS: ALT/SGPT 53 U/L (12-78); AST/SGOT 34 U/L (15-37); Albumin 3.3 g/dL (3.4-5.0); Alkaline Phosphatase 125 U/L (45-117); BUN Blood Urea Nitrogen 7 mg/dL (7-18); Bicarbonate 25 mmol/L (21-32); Bilirubin Total 0.5 mg/dL (0.2-1.0); Glucose Level 92 mg/dL (74-106); Potassium 3.5 mmol/L (3.5-5.1); Protein, Total 8.1 g/dL (6.4-8.2); Sodium Level 134 mmol/L (136-145)
--- NOTE | 2019-10-25 09:06 | RAD REPORT ---
EXAM DESCRIPTION: CT - Stone Protocol - 10/25/2019 8:45 am CLINICAL HISTORY: Flank pain. Abd pain;Fever;Flank pain COMPARISON: <Comparisons> TECHNIQUE: Axial images were obtained without oral or IV contrast. Lack of contrast limits solid org an and vascular assessment. The [id number] spans the entirety of the system partially obscuring uppermost abdomen and lung bases. Coronal reformatted images were obtained and reviewed. All CT scans are performed using dose optimization technique as appropriate and may include automated exposure control or mA/KV adjustment according to patient size. FINDINGS: The lower lung العلي are clear. Small hiatal hernia. Postsurgical changes about the stoma ch seen. Imaged portions of the liver and spleen show no suspicious findings on non-contrast imaging. The panc reas and adrenal glands are normal. No pathologic lymphadenopathy in the abdomen or pelvis. No urinary tract stones or obstructive uropathy. Postsurgical changes noted inferior anterior left ki dney. No bowel obstruction, free air, free fluid or abscess. Normal appendix noted. No significant bony abnormality. IMPRESSION: No urinary tract stones or obstructive uropathy.
[2019-10-25 09:18] LABS: Blood Morphology Comment NOT SEEN (NOT SEEN); Platelet Estimate ADEQ
--- NOTE | 2019-10-25 09:20 | ER ---
Nurse's Notes [facility] Name: Leigh Ann Rothman Age: 43 yrs Sex: Female : 1975 Arrival Date: 10/25/2019 Time: 07:46 Bed 8 Private MD: Diagnosis: Acute tubulo-interstitial nephritis;Fever, unspecified;Elevated white blood cell count Presentation: 10/24 07:47 Chief complaint: Patient states: fever up to 102.0 since Friday. Pt reports she did a aa5 telemedicine visit and was prescribed Macrobid for possible UTI, reports she's been taking it since night. Pt reports last antipyretic was around 0000. Pt reports right low back pain and RLQ pain. Pt denies burning with urination. Denies cough, denies SOB. 07:47 Acuity: RODNEY 3 aa5 07:47 Method Of Arrival: Ambulatory aa5 07:47 Coronavirus screen: Patient denies a cough. Patient denies shortness of breath or aa5 difficulty breathing. Patient reports a measured and/or subjective temperature greater than 100.4F. Patient denies travel on a cruise ship or to a country the [facility] currently lists as an affected area. Patient denies contact with known and/or suspected case of COVID-19. 07:47 Ebola Screen: Patient negative for fever greater than or equal to 101.5 degrees aa5 Fahrenheit, and additional compatible Ebola Virus Disease symptoms. Initial Sepsis Screen: Does the patient meet any 2 criteria? No. Patient's initial sepsis screen is negative. Does the patient have a suspected source of infection? Yes:. Risk Assessment: Do you want to hurt yourself or someone else? Patient reports no desire to harm self or others. Onset of symptoms was October 2019. 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 - Social history:: Smoking status: Patient denies any tobacco usage or history of. - Family history:: not pertinent. Screenin:52 Abuse screen: Denies threats or abuse. Denies injuries from another. Nutritional sv screening: No deficits noted. Tuberculosis screening: No symptoms or risk factors identified. Fall Risk None identified. Assessment: 08:10 General: Appears in no apparent distress. uncomfortable, well developed, Behavior is sv calm, cooperative, appropriate for age. Pain: Complains of pain in right low back, posterior aspect of right lateral abdomen, anterior aspect of right lateral abdomen and right lower quadrant Pain currently is 5 out of 10 on a pain scale. Quality of pain is described as sharp, Pain began Friday Is intermittent. Neuro: Level of Consciousness is awake, alert, obeys commands, Oriented to person, place, time, situation, Gait is steady. Respiratory: Airway is patent Respiratory effort is even, unlabored, Respiratory pattern is regular, symmetrical. : Reports decreased urine output Denies burning with urination. Derm: Skin is intact, Skin is pink, warm \T\ dry. Musculoskeletal: Range of motion: intact in all extremities. 08:50 Reassessment: Patient appears in no apparent distress at this time. No changes from sv previously documented assessment. Patient and/or family updated on plan of care and expected duration. Pain level reassessed. Patient is alert, oriented x 3, equal unlabored respirations, skin warm/dry/pink. 09:39 Reassessment: Patient appears in no apparent distress at this time. No changes from sv previously documented assessment. Patient and/or family updated on plan of care and expected duration. Pain level reassessed. Patient is alert, oriented x 3, equal unlabored respirations, skin warm/dry/pink. Pt waiting for IVF to finish infusing before discharge. 10:24 Reassessment: Patient appears in no apparent distress at this time. No changes from sv previously documented assessment. Patient and/or family updated on plan of care and expected duration. Pain level reassessed. Patient is alert, oriented x 3, equal unlabored respirations, skin warm/dry/pink. Vital Signs: 07:47 BP 134 / 89; Pulse 86; Resp 16 S; Temp 98.5(O); Pulse Ox 96% on R/A; Weight 86.18 kg aa5 (R); Height 5 ft. 6 in. (167.64 cm) (R); Pain 5/10; 08:50 BP 114 / 75; Pulse 81; Resp 16; Pulse Ox 100% on R/A; sv 09:39 BP 109 / 75; Pulse 77; Resp 16; Pulse Ox 100% on R/A; sv 07:47 Body Mass Index 30.67 (86.18 kg, 167.64 cm) aa5 ED Course: 07:46 Patient arrived in ED. ag5 07:47 Bienvenido Tejada MD is Attending Physician. damaso 07:51 Waleska Meyer, ESTEFANIA is Primary Nurse. sv 07:51 Arm band placed on Patient placed in an exam room, on a stretcher, on pulse oximetry. sv 07:52 Patient has correct armband on for positive identification. Bed in low position. Call sv light in reach. Pulse ox on. NIBP on. Door closed. Head of bed elevated. 08:00 Triage completed. aa5 08:15 First set of blood cultures drawn by me. Inserted saline lock: 22 gauge in left upper sv arm, using aseptic technique. ,using aseptic technique. diffusics Blood collected. Flushed left with 5 ml normal saline. 08:30 Second set of blood cultures drawn by me. sv 08:44 CT Stone Protocol In Process Unspecified. EDMS 08:50 Awaiting lab results, Awaiting radiology results. sv 10:24 No provider procedures requiring assistance completed. IV discontinued, intact, sv bleeding controlled, No redness/swelling at site. Pressure dressing applied. Administered Medications: 08:49 Drug: NS 0.9% 1000 ml Route: IV; Rate: 1 bolus; Site: left upper arm; sv 10:24 Follow up: Response: No adverse reaction; IV Status: Completed infusion; IV Intake: sv 1000ml 08:49 Drug: Rocephin 1 grams Route: IV; Rate: per protocol; Site: left upper arm; sv 09:39 Drug: LevOfloxacin 750 mg Route: PO; sv 10:24 Follow up: Response: No adverse reaction sv Intake: 10:24 IV: 1000ml; Total: 1000ml. sv Outcome: 09:20 Discharge ordered by . damaso 10:24 Discharged to home ambulatory. sv 10:24 Condition: stable 10:24 Discharge instructions given to patient, Instructed on discharge instructions, follow up and referral plans. medication usage, Demonstrated understanding of instructions, follow-up care, medications, Prescriptions given X 1. 10:54 Patient left the ED. sv Signatures: Dispatcher [employer] Waleska Issa RN RN sv Anderson, Corey, MD MD cha Calderon, Audri, RN RN aa5 Reyes, Fouzia [facility]
--- NOTE | 2019-10-25 09:21 | EDPHYS ---
Physician Documentation [facility] Name: Leigh Ann Rothman Age: 43 yrs Sex: Female : 1975 Arrival Date: 10/25/2019 Time: 07:46 Bed 8 Private MD: CRUZ Physician Bienvenido Tejada HPI: 10/24 08:12 This 43 yrs old Female presents to ER via Ambulatory with complaints of damaso Fever, Kidney Problem. 08:12 The patient reports fever, that was measured at 102 degrees Fahrenheit. Onset: The damaso symptoms/episode began/occurred 3 day(s) ago. Modifying factors: there are no obvious modifying factors. Associated signs and symptoms: Pertinent positives: abdominal pain, backache, chills, nausea. Severity of symptoms: At their worst the symptoms were moderate in the emergency department the symptoms are unchanged. The patient has not experienced similar symptoms in the past. 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 - Social history:: Smoking status: Patient denies any tobacco usage or history of. - Family history:: not pertinent. ROS: 08:12 Eyes: Negative for injury, pain, redness, and discharge, ENT: Negative for injury, damaso pain, and discharge, Neck: Negative for injury, pain, and swelling, Cardiovascular: Negative for chest pain, palpitations, and edema, Respiratory: Negative for shortness of breath, cough, wheezing, and pleuritic chest pain, : Negative for injury, bleeding, discharge, and swelling, MS/Extremity: Negative for injury and deformity, Skin: Negative for injury, rash, and discoloration, Neuro: Negative for headache, weakness, numbness, tingling, and seizure, Psych: Negative for depression, anxiety, suicide ideation, homicidal ideation, and hallucinations, Allergy/Immunology: Negative for hives, rash, and allergies, Endocrine: Negative for neck swelling, polydipsia, polyuria, polyphagia, and marked weight changes, Hematologic/Lymphatic: Negative for swollen nodes, abnormal bleeding, and unusual bruising. 08:12 Constitutional: Positive for body aches, chills, fever. 08:12 Abdomen/GI: Positive for abdominal pain, of the right lower quadrant. 08:12 Back: Positive for pain at rest, pain with movement, flank pain, on the right. Exam: 08:12 Constitutional: This is a well developed, well nourished patient who is awake, alert, damaso and in no acute distress. Head/Face: Normocephalic, atraumatic. Eyes: Pupils equal round and reactive to light, extra-ocular motions intact. Lids and lashes normal. Conjunctiva and sclera are non-icteric and not injected. Cornea within normal limits. Periorbital areas with no swelling, redness, or edema. ENT: Nares patent. No nasal discharge, no septal abnormalities noted. Tympanic membranes are normal and external auditory canals are clear. Oropharynx with no redness, swelling, or masses, exudates, or evidence of obstruction, uvula midline. Mucous membranes moist. Neck: Trachea midline, no thyromegaly or masses palpated, and no cervical lymphadenopathy. Supple, full range of motion without nuchal rigidity, or vertebral point tenderness. No Meningismus. Chest/axilla: Normal chest wall appearance and motion. Nontender with no deformity. No lesions are appreciated. Cardiovascular: Regular rate and rhythm with a normal S1 and S2. No gallops, murmurs, or rubs. Normal PMI, no JVD. No pulse deficits. Respiratory: Lungs have equal breath sounds bilaterally, clear to auscultation and percussion. No rales, rhonchi or wheezes noted. No increased work of breathing, no retractions or nasal flaring. Back: No spinal tenderness. No costovertebral tenderness. Full range of motion. Skin: Warm, dry with normal turgor. Normal color with no rashes, no lesions, and no evidence of cellulitis. MS/ Extremity: Pulses equal, no cyanosis. Neurovascular intact. Full, normal range of motion. Neuro: Awake and alert, GCS 15, oriented to person, place, time, and situation. Cranial nerves II-XII grossly intact. Motor strength 5/5 in all extremities. Sensory grossly intact. Cerebellar exam normal. Normal gait. Psych: Awake, alert, with orientation to person, place and time. Behavior, mood, and affect are within normal limits. 08:12 Abdomen/GI: Inspection: abdomen appears normal, Bowel sounds: normal, Palpation: mild abdominal tenderness, in the posterior aspect of right lateral abdomen, anterior aspect of right lateral abdomen and right lower quadrant, Liver: no appreciated palpable abnormalities, Hernia: not appreciated. 09:06 Back: pain, is absent, ROM is normal, normal spinal alignment noted, CVA tenderness, damaso that is moderate, is noted on the right, vertebral tenderness, is not appreciated, muscle spasm, is not present. Vital Signs: 07:47 BP 134 / 89; Pulse 86; Resp 16 S; Temp 98.5(O); Pulse Ox 96% on R/A; Weight 86.18 kg aa5 (R); Height 5 ft. 6 in. (167.64 cm) (R); Pain 5/10; 08:50 BP 114 / 75; Pulse 81; Resp 16; Pulse Ox 100% on R/A; sv 09:39 BP 109 / 75; Pulse 77; Resp 16; Pulse Ox 100% on R/A; sv 07:47 Body Mass Index 30.67 (86.18 kg, 167.64 cm) aa5 MDM: 07:51 Patient medically screened. damaso 08:14 Data reviewed: vital signs, nurses notes, lab test result(s), radiologic studies, CT damaso scan. 08:14 Differential diagnosis: bacterial infection, UTI. Data interpreted: alarm security or surveillance monitor: damaso rate is 86 beats/min, Pulse oximetry: on room air is 96 %. Counseling: I had a detailed discussion with the patient and/or guardian regarding: the historical points, exam findings, and any diagnostic results supporting the discharge/admit diagnosis, lab results, radiology results. 09:17 ED course: non toxic, will treat on abx levaquin, dc macrobid, follow up dr bautista, damaso return to er if worse. ED course: dr dr toribio , mild stranding around right kidney, despite neg ct report. 10/24 08:09 Order name: Urine Dipstick--Ancillary (enter results); Complete Time: 08:58 em1 10/24 08:09 Order name: Urine --Ancillary (enter results); Complete Time: 08:58 em1 10/24 08:12 Order name: CBC with Diff; Complete Time: 09:51 [facility] 10/24 08:12 Order name: Comprehensive Metabolic Panel; Complete Time: 09:05 [facility] 10/24 08:12 Order name: Blood Culture Adult (2) [facility] 10/24 08:12 Order name: Urine Culture [facility] 10/24 08:12 Order name: CT Stone Protocol; Complete Time: 09:51 [facility] 10/24 08:12 Order name: Procalcitonin; Complete Time: 09:51 [facility] 10/24 09:18 Order name: Manual Differential; Complete Time: 09:51 EDMS Administered Medications: 08:49 Drug: NS 0.9% 1000 ml Route: IV; Rate: 1 bolus; Site: left upper arm; sv 10:24 Follow up: Response: No adverse reaction; IV Status: Completed infusion; IV Intake: sv 1000ml 08:49 Drug: Rocephin 1 grams Route: IV; Rate: per protocol; Site: left upper arm; sv 09:39 Drug: LevOfloxacin 750 mg Route: PO; sv 10:24 Follow up: Response: No adverse reaction sv Disposition: 10/25/19 09:20 Discharged to Home. Impression: Acute tubulo-interstitial nephritis, Fever, unspecified, Elevated white blood cell count. - Condition is Stable. - Discharge Instructions: Fever, Adult, Pyelonephritis, Adult, Pyelonephritis, Adult, [id number]. - Prescriptions for Levaquin 750 mg Oral Tablet - take 1 tablet by ORAL route once daily for 10 days; 9 tablet. - Medication Reconciliation Form, Thank You Letter, Antibiotic Education, Prescription Opioid Use form. - Follow up: Private Physician; When: 2 - 3 days; Reason: Recheck today's complaints, Continuance of care, Re-evaluation by your physician. - Problem is new. - Symptoms have improved. Signatures: Dispatcher [employer] Waleska Isas RN RN sv Anderson, Corey, MD MD cha Calderon, Audri RN RN aa5 Corrections: (The following items were deleted from the chart) 10:54 09:20 10/25/2019 09:20 Discharged to Home. Impression: Acute tubulo-interstitial sv nephritis; Fever, unspecified; Elevated white blood cell count. Condition is Stable. Forms are Medication Reconciliation Form, Thank You Letter, Antibiotic Education, Prescription Opioid Use. Follow up: Private Physician; When: 2 - 3 days; Reason: Recheck today's complaints, Continuance of care, Re-evaluation by your physician. Problem is new. Symptoms have improved. damaso
[2019-10-25] MEDS ORDERED: levoFLOXacin 750 MG TAB ONE (09:38)
[2019-10-25 11:01] VITALS: TEMP 98.5
[2019-10-25 11:14] VITALS: O2SAT 100
[2019-10-25 11:15] VITALS: BP 109/75
== END 2019-10-25 10:54 | disposition home or self-care (01) ==
LOC: ER 07:43
DX: N10 Acute pyelonephritis (principal); D72.829 Elevated white blood cell count, unspecified; E03.9 Hypothyroidism, unspecified; Z85.528 Personal history of other malignant neoplasm of kidney
CPT/HCPCS: 96361; 87040 ×2; 87088; 85025; 36415; 81025; 81003; 80053; 84145; 76377; 74176; 96374; 99284; J0696; J7030; 87086

== ENCOUNTER 2022-05-30 22:55 | Observation (INO) | payer BC ==
--- OUTSIDE RECORDS SUMMARY | 2022-05-30 22:58 | XMS REPORT | Continuity of Care Document ---
:1975 Author Organization [facility] t Address [address] [place] [address] Care Team Providers Name Role Phone Tracee EMANUEL, Kyle Turner Primary Care Physician VAL RODRIGUEZ Attending Clinician Unavailable Milka Tejada MA Attending Clinician Unavailable Shu Ball Attending Clinician Unavailable IVANA CLARK Attending Clinician Unavailable Lab, Adc Fam Pob I Attending Clinician Unavailable Alba Landeros Attending Clinician ALBA CLAY Attending Clinician Unavailable Doctor Unassigned, [place] Attending Clinician Unavailable Elsa Dickerson Admitting Clinician Unavailable Payers Payer Name Policy Type Policy Number Effective Date Expiration Date S ource [facility] [id number] 2018 00:00[facility]00 [facility] [id number] 2018 00:00:00 OUT OF STATE Problems Condition Condition Condition Status Onset Resolution Last Treating Co mments Source Name Details Category Date Date Treatment Clinician Date Abdominal Abdominal Disease Active Uni vers or pelvic or pelvic 7-08 ity of swelling, swelling, 00:00: Neal miller mass, or mass, or 00 lump, lump, Anderso right right n lower lower Cancer quadrant quadrant Center Renal mass Renal mass Disease Active Overview : Univers 6-25 Formattin ity of 00:00: g of this [place] 00 note MD might be Anderso different n from the Cancer original. Center Added automatic ally from request for surgery [id number] No known No known Disease [place] active active Health problems problems Low back Low back Problem Active 2019-01-13 Memoria pain pain 02:45:25 l Active Doug Problem 01/13/2019 [facility] Other Other Problem Active 2019-01-13 Memor ia specified specified 02:45:25 l abnormal abnormal Qasim n findings findings of blood of blood chemistry chemistry Active Problem 01/13/2019 [facility] Other Other Problem Active 2019-01-13 Matt roro chronic chronic 02:45:25 l pain pain Doug Active Problem 01/13/2019 [facility] Pain in Pain in Problem Active 2019-01-13 Me moria joint, joint, 02:45:25 l multiple multiple Qasim n sites sites Active Problem 01/13/2019 [facility] Bruce' Bruce Problem Active 2019-01-13 Memoria s disease 's disease 02:45:25 l Active [place] Problem 01/13/2019 [facility] Allergies, Adverse Reactions, Alerts Allergy Allergy Status Severity Reaction(s) Onset Inactive Treating Comm ents Source Name Type Date Date Clinician No Known DA Active U [facility] [place] No Known DA Active U 0 [facility] [place] NO KNOWN Drug Active Univers ALLERGIE Class ity of S [facility] Gluten Propensi Active GI Univers ty to Intolerance ity o f adverse [place] reaction [facility] Family History Family Member Diagnosis Comments Start Date Stop Date Source Other Kidney cancer [facility] MD [facility] Paternal aunt [facility] MD [facility] Paternal cousin Universit [facility] MD [facility] Paternal Diabetes [facility] MD [facility] [place] Paternal Hypertension University o f [facility] MD [facility] Paternal Breast cancer [facility] MD [facility] [place] Paternal Stroke [facility] MD [facility] [place] Paternal uncle Hodgkin's lymphoma [facility]ity [facility] [place] [facility] Natural sister [facility] Erasmo son Cancer Center Natural son [facility] MD [facility] Natural daughter [facility]i ty [facility] [place] [facility] Natural father Diabetes [facility] Erasmo son Cancer Center Natural father Hypertension [facility]i ty [facility] [place] [facility] Maternal cousin Breast [facility] Maternal [facility] MD [facility] rson [facility] [place] Maternal [facility]ic [facility] [place] Maternal uncle [facility] Erasmo son Cancer Center Natural mother -Other cancer Univers ity [facility] Erasmo son Cancer Center Natural mother Skin cancer [facility]it y [facility] [place] MD [facility] Nephew Immunodeficiency Universi ty [facility] [place] MD [facility] Social History Social Habit Start Date Stop Date Quantity Comments Source ASSERTION [facility] MD [facility] History SDOH [facility] Alcohol Frequency History [facility]d [facility] Binge Exposure to Not sure [facility] SARS-CoV-2 (event) Alcohol Comment 2021-07-17 2021-07-17 social [facility] 00:00:00 00:00:00 Tobacco use and 2021-07-17 2021-07-17 Smokeless tobacco [facility] exposure 00:00:00 00:00:00 non-user Alcohol intake 2019-09-13 2019-09-13 Current drinker Unive rsity of 00:00:00 00:00:00 of alcohol [place] MD [facility] son (finding) [facility] Sex Assigned At [birth year] Universit y of 00:00:00 00:00:00 [place] MD [facility] Smoking Status Start Date Stop Date Source Unknown if ever smoked [facility] [place] Never smoked tobacco [facility] Medications Ordered Filled Start Stop Current Ordering Indication Dosage Frequency Signature Comments Components Source Medication Medication Date Date Medication? Clinician (SIG) Name Name esomeprazol Yes 20mg Take 20 mg UT e (NexIUM) 2-01 by mouth [address] [facility]a l[facility] [address] 16:33: (one) time capsule 28 each day before breakfast. Do not open capsule. sertraline Yes 25mg QD Take 25 mg U T (Zoloft) 25 -21 by mouth 1 He alth MG tablet 00:00: (one) time 00 each day. TAKE 1 TABLET BY MOUTH EVERY DAY FOR 14 DAYS levothyroxi Yes 175ug QD Take 175 U T ne 1-03 mcg by Health (Synthroid, 00:00: mouth 1 Levoxyl) 00 (one) time 175 MCG each day. tablet levothyroxi Yes TK 1 T PO U nivers ne 5-18 QD ity of (SYNTHROID, 00:00: [place] LEVOTHROID) 00 200 mcg [facility] esomeprazol Yes Univer s e (NexIUM) 5-16 ity of 20 MG 00:00: [place] capsule 00 [facility] Procedures This patient has no known procedures. Plan of Care Planned Activity Planned Date Details Comments Source Future Scheduled 2022-05-30 COVID-19 Vaccination Uni versity of [place] Test 22:57:35 (#1) [code = COVID-19 And caroline Cancer Vaccination (#1)] Center Encounters Start End Encounter Admission Attending Care Care Encounter Source Date/Time Date/Time Type Type Clinicians Facility Department ID 2022-05-30 Outpatient [id number] Memoria 22:57:44 [id number] [place] [id number] [id number] 2021-06-26 Outpatient [facility] [id number] [place] 10:12:44 VAL Heallindsey h 2021-08-07 2021-08-07 Telephone Milka Tejada [facility] [id number] [place] 00:00:00 00:00:00 Milka Tejada SUGAR [id number] [facility] [id number] [address] [id number] AND 4 WOMENS 2020-12-04 2020-12-04 Outpatient MARISOL NogueiraWH RADI [id number] [facility] 07:06:00 07:06:00 Shu [id number] [facility] 2020-10-30 2020-10-30 Outpatient Velasquez CLARK, [facility] [id number] Univers 10:20:00 10:20:00 IVANA it[facility] 2020-10-02 2020-10-[address] [facility] [id number] Univers 10:20:00 10:20:00 ity [facility] 2020-07-12 2020-07-12 Laboratory Lab, [facility] Fam Pob I [facility] 1.2. [id number] Univers 11:52:45 12:12:45 Only Nicolebailey [facility] 350.1.13.10 ity of [place] 4.2.7.2.686 Marvin as Professio [id number] [place] dical [address] Office Building [facility] 2020-07-12 2020-07-12 Laboratory Lab, [facility] [id number] 11:52:45 12:12:45 Only Fam Pob I Health 350.1.13.10 [place] 4.2.7.2.686 Professio [phone] [address] 2020-07-12 2020-07-12 Outpatient Velasquez DANNA [facility] [id number] Univers 11:40:00 11:40:00 ALBA it[facility] 2020-07-12 2020-07-12 Letter Doctor KADIE [id number] Univers 00:00:00 00:00:00 (Out) Unassigned, ALEX 350.1.13.10 ity of [place] [facility] 4.2.7.2.686 Marvin as [phone] [address] 2020-07-12 2020-07-12 Letter Doctor KADIE Khan2.840.114 [id number] 00:00:00 00:00:00 (Out) Unassigned, ALEX 350.1.13.10 [place] [facility] 4.2.7.2.686 [id number] [facility] 2018-10-19 2018-10-19 Outpatient [facility] [id number] eClinic 10:17:00 10:17:00 Rheumatol Rheumatolog alWorks ogy y [facility] Results Test Description Test Time Test Comments Results Result [facility] e Comments - US PELVIS 2020-12-04 COMPLETE 00:00:00 [facility] : 1975 Sex: F Patient Name: MARYLOU MARTINEZ Unit No: [id number] EXAMS: CPT CODE: [id number] US PELVIS COMPLETE 34005 PROCEDURE INFORMATION: Exam: US Duplex Artery or Vein of the Abdominal and/or Reproductive Organs, Limited Ovaries Exam date and time: 12/04/2020 7:22 AM Age: 44 years old Clinical indication: Abnormal findings; Abnormal imaging test; Exam and body structure: Ultrasound, ovary; Mass/lesion; Prior surgery; Surgery date: 6+ months; Additional info: Right ovarian mass, aub TECHNIQUE: Imaging protocol: Real-time duplex ultrasound scan of the arterial or venous flow with baum scale, color Doppler flow and spectral waveform analysis with image documentation. Limited duplex exam focused on the ovaries. Duplex images required to evaluate for torsion and other vascular conditions. COMPARISON: US TRANSVAGINAL W/PELVIS 12/22/2018 7:49 AM FINDINGS: Right adnexa: Doppler flow to the right ovary is present. Left adnexa: Doppler flow to the left ovary is present. ==== PROCEDURE INFORMATION: Exam: US Pelvis Complete, Transabdominal and US Pelvis, Transvaginal Exam date and time: 12/04/2020 7:22 AM Age: 44 years old Clinical indication: Abnormal findings; Abnormal imaging test; Exam and body structure: Ultrasound, ovary; Mass/lesion; Prior surgery; Surgery date: 6+ months; Additional info: Right ovarian mass, aub; () TECHNIQUE: Imaging protocol: Real-time transabdominal and transvaginal pelvic ultrasound (complete) with image documentation. Transvaginal imaging was used for better evaluation of the endometrium, adnexa, and/or cervix. COMPARISON: US TRANSVAGINAL W/PELVIS 12/22/2018 7:49 AM FINDINGS: Uterus/cervix: Nabothian cysts in the cervix. Trace fluid in the endocervical canal. Uterus is anteflexed measuring 10.3 cm length with question of septate or arcuate configuration. The myometrium is mildly heterogeneous. The endometrial stripe measures 0.6 cm thickness. Right adnexa: Right ovary measures 4.4 x 3.2 x 3.3 cm with a 3.8 cm heterogeneous lesion with color flow again noted. Left adnexa: Left ovary measures 3.3 x 2.0 x 2.6 cm and contains a dominant follicle. [facility] NAME: MARYLOU MARTINEZ Radiology Department PHYS: Shu Garcia [address] : 1975 AGE: 44 SEX: F [place], [place] [address] LOC: ArabellaRAD PHONE #: [phone] EXAM DATE: 12/04/2020 STATUS: REG CLI FAX #: [phone] RAD NO: [id number] Page 1 Signed Report (CONTINUED) Patient Name: MARYLOU MARTINEZ Unit No: [id number] EXAMS: CPT CODE: [id number] US PELVIS COMPLETE 76257 (Continued) Intraperitoneal space: No free fluid is seen. Urinary bladder: The bladder is under distended. ==== IMPRESSION: US Duplex Artery or Vein of the Abdominal and/or Reproductive Organs, Limited Ovaries Doppler flow is present in both ovaries. US Pelvis Complete, Transabdominal and US Pelvis, Transvaginal 1. 3.8 cm complex lesion right ovary is not significantly changed and indeterminate, may reflect an endometrioma or other lesion. An MRI pelvis without and with IV contrast can further characterize. 2. Heterogeneous uterine myometrium is nonspecific, occult fibroids or adenomyosis may be considered. This can be evaluated at MRI. 3. Question septate or arcuate uterus. 4. Trace fluid in the cervix. at 0905 Reported and signed by: Eren Whitehead MD CC: Technologist: Jillian Gipson RDMS Probe: Trnscrbd D/ (904) GCD.CPS Orig Print D/T: S: 12/04/2020 (904) [facility] NAME: MARYLOU MARTINEZ Radiology Department PHYS: Shu Garcia [address] : 1975 AGE: 44 SEX: F [place] [address] LOC: F.RAD PHONE #: [phone] EXAM DATE: 12/04/2020 STATUS: REG CLI FAX #: [phone] RAD NO: [id number] Page 2 Signed Report Patient Name: MARYLOU MARTINEZ Sussy Unit No: [id number] EXAMS: CPT CODE: [id number] US PELVIS COMPLETE 43535 (Continued) [facility] NAME: MARTINEZMARYLOU Radiology Department PHYS: Shu Garcia [address] : 1975 AGE: 44 SEX: F [place] [address] LOC: F.RAD PHONE #: [phone] EXAM DATE: 12/04/2020 STATUS: REG CLI FAX #: [phone] RAD NO: [id number] Page 3 Signed Report - US TRANSVAGINAL 2020-12-04 W/PELVIS 00:00:00 [facility] : 1975 Sex: F Patient Name: MARYLOU MARTINEZ Unit No: [id number] EXAMS: CPT CODE: [id number] US TRANSVAGINAL W/PELVIS 26049 PROCEDURE INFORMATION: Exam: US Duplex Artery or Vein of the Abdominal and/or Reproductive Organs, Limited Ovaries Exam date and time: 12/04/2020 7:22 AM Age: 44 years old Clinical indication: Abnormal findings; Abnormal imaging test; Exam and body structure: Ultrasound, ovary; Mass/lesion; Prior surgery; Surgery date: 6+ months; Additional info: Right ovarian mass, aub TECHNIQUE: Imaging protocol: Real-time duplex ultrasound scan of the arterial or venous flow with baum scale, color Doppler flow and spectral waveform analysis with image documentation. Limited duplex exam focused on the ovaries. Duplex images required to evaluate for torsion and other vascular conditions. COMPARISON: US TRANSVAGINAL W/PELVIS 12/22/2018 7:49 AM FINDINGS: Right adnexa: Doppler flow to the right ovary is present. Left adnexa: Doppler flow to the left ovary is present. ==== PROCEDURE INFORMATION: Exam: US Pelvis Complete, Transabdominal and US Pelvis, Transvaginal Exam date and time: 12/04/2020 7:22 AM Age: 44 years old Clinical indication: Abnormal findings; Abnormal imaging test; Exam and body structure: Ultrasound, ovary; Mass/lesion; Prior surgery; Surgery date: 6+ months; Additional info: Right ovarian mass, aub; () TECHNIQUE: Imaging protocol: Real-time transabdominal and transvaginal pelvic ultrasound (complete) with image documentation. Transvaginal imaging was used for better evaluation of the endometrium, adnexa, and/or cervix. COMPARISON: US TRANSVAGINAL W/PELVIS 12/22/2018 7:49 AM FINDINGS: Uterus/cervix: Nabothian cysts in the cervix. Trace fluid in the endocervical canal. Uterus is anteflexed measuring 10.3 cm length with question of septate or arcuate configuration. The myometrium is mildly heterogeneous. The endometrial stripe measures 0.6 cm thickness. Right adnexa: Right ovary measures 4.4 x 3.2 x 3.3 cm with a 3.8 cm heterogeneous lesion with color flow again noted. Left adnexa: Left ovary measures 3.3 x 2.0 x 2.6 cm and contains a dominant follicle. [facility] NAME: MARYLOU MARTINEZ Radiology Department PHYS: Shu Garcia [address] : 1975 AGE: 44 SEX: F [place], [place] [address] LOC: Jackie.RAD PHONE #: [phone] EXAM DATE: 12/04/2020 STATUS: REG CLI FAX #: [phone] RAD NO: [id number] Page 1 Signed Report (CONTINUED) Patient Name: MARYLOU MARTINEZ Unit No: [id number] EXAMS: CPT CODE: [id number] US TRANSVAGINAL W/PELVIS 51798 (Continued) Intraperitoneal space: No free fluid is seen. Urinary bladder: The bladder is under distended. ==== IMPRESSION: US Duplex Artery or Vein of the Abdominal and/or Reproductive Organs, Limited Ovaries Doppler flow is present in both ovaries. US Pelvis Complete, Transabdominal and US Pelvis, Transvaginal 1. 3.8 cm complex lesion right ovary is not significantly changed and indeterminate, may reflect an endometrioma or other lesion. An MRI pelvis without and with IV contrast can further characterize. 2. Heterogeneous uterine myometrium is nonspecific, occult fibroids or adenomyosis may be considered. This can be evaluated at MRI. 3. Question septate or arcuate uterus. 4. Trace fluid in the cervix. at 0905 Reported and signed by: Eren Whitehead MD CC: Technologist: Jillian Gipson RDMS Probe: [id number] Trnscrbd D/ (0905) GCD.CPS Orig Print D/T: S: 12/04/2020 (904) [facility] NAME: MARYLOU MARTINEZ Radiology Department PHYS: Shu Garcia [address] : 1975 AGE: 44 SEX: F [place], [place] [address] LOC: F.RAD PHONE #: [phone] EXAM DATE: 12/04/2020 STATUS: REG CLI FAX #: [phone] RAD NO: [id number] Page 2 Signed Report Patient Name: MARYLOU MARTINEZ Unit No: [id number] EXAMS: CPT CODE: [id number] US TRANSVAGINAL W/PELVIS 06500 (Continued) [facility] NAME: MARYLOU MARTINEZ Radiology Department PHYS: Shu Garcia [address] : 1975 AGE: 44 SEX: F [place], [place] [address] LOC: F.RAD PHONE #: [phone] EXAM DATE: 12/04/2020 STATUS: REG CLI FAX #: [phone] RAD NO: [id number] Page 3 Signed Report - DUP AB/PEL/SC/LTD 2020-12-04 00:00:00 [facility] : 1975 Sex: F Patient Name: MARYLOU MARTINEZ Unit No: [id number] EXAMS: CPT CODE: [id number] DUP AB/PEL/SC/LTD 12955 PROCEDURE INFORMATION: Exam: US Duplex Artery or Vein of the Abdominal and/or Reproductive Organs, Limited Ovaries Exam date and time: 12/04/2020 7:22 AM Age: 44 years old Clinical indication: Abnormal findings; Abnormal imaging test; Exam and body structure: Ultrasound, ovary; Mass/lesion; Prior surgery; Surgery date: 6+ months; Additional info: Right ovarian mass, aub TECHNIQUE: Imaging protocol: Real-time duplex ultrasound scan of the arterial or venous flow with baum scale, color Doppler flow and spectral waveform analysis with image documentation. Limited duplex exam focused on the ovaries. Duplex images required to evaluate for torsion and other vascular conditions. COMPARISON: US TRANSVAGINAL W/PELVIS 12/22/2018 7:49 AM FINDINGS: Right adnexa: Doppler flow to the right ovary is present. Left adnexa: Doppler flow to the left ovary is present. ==== PROCEDURE INFORMATION: Exam: US Pelvis Complete, Transabdominal and US Pelvis, Transvaginal Exam date and time: 12/04/2020 7:22 AM Age: 44 years old Clinical indication: Abnormal findings; Abnormal imaging test; Exam and body structure: Ultrasound, ovary; Mass/lesion; Prior surgery; Surgery date: 6+ months; Additional info: Right ovarian mass, aub; () TECHNIQUE: Imaging protocol: Real-time transabdominal and transvaginal pelvic ultrasound (complete) with image documentation. Transvaginal imaging was used for better evaluation of the endometrium, adnexa, and/or cervix. COMPARISON: US TRANSVAGINAL W/PELVIS 12/22/2018 7:49 AM FINDINGS: Uterus/cervix: Nabothian cysts in the cervix. Trace fluid in the endocervical canal. Uterus is anteflexed measuring 10.3 cm length with question of septate or arcuate configuration. The myometrium is mildly heterogeneous. The endometrial stripe measures 0.6 cm thickness. Right adnexa: Right ovary measures 4.4 x 3.2 x 3.3 cm with a 3.8 cm heterogeneous lesion with color flow again noted. Left adnexa: Left ovary measures 3.3 x 2.0 x 2.6 cm and contains a dominant follicle. [facility] NAME: MARYLOU MARTINEZ Radiology Department PHYS: Shu Garcia [address] : 1975 AGE: 44 SEX: F [place] [address] LOC: Jackie.RAD PHONE #: [phone] EXAM DATE: 12/04/2020 STATUS: REG CLI FAX #: [phone] RAD NO: [id number] Page 1 Signed Report (CONTINUED) Patient Name: MARYLOU MARTINEZ Unit No: [id number] EXAMS: CPT CODE: [id number] DUP AB/PEL/SC/LTD 19685 (Continued) Intraperitoneal space: No free fluid is seen. Urinary bladder: The bladder is under distended. ==== IMPRESSION: US Duplex Artery or Vein of the Abdominal and/or Reproductive Organs, Limited Ovaries Doppler flow is present in both ovaries. US Pelvis Complete, Transabdominal and US Pelvis, Transvaginal 1. 3.8 cm complex lesion right ovary is not significantly changed and indeterminate, may reflect an endometrioma or other lesion. An MRI pelvis without and with IV contrast can further characterize. 2. Heterogeneous uterine myometrium is nonspecific, occult fibroids or adenomyosis may be considered. This can be evaluated at MRI. 3. Question septate or arcuate uterus. 4. Trace fluid in the cervix. at 0905 Reported and signed by: Eren Whitehead MD CC: Technologist: Jillian Gipson RDMS Probe: Trnscrbd D/ (09) GCD.CPS Orig Print D/T: S: 12/04/2020 (0905) [facility] NAME: MARYLOU MARTINEZ Radiology Department PHYS: Shu Garcia [address] : 1975 AGE: 44 SEX: F [place] [address] LOC: Jackie.RAD PHONE #: [phone] EXAM DATE: 12/04/2020 STATUS: REG CLI FAX #: [phone] RAD NO: [id number] Page 2 Signed Report Patient Name: MARYLOU MARTINEZ Unit No: [id number] EXAMS: CPT CODE: [id number] DUP AB/PEL/SC/LTD 27617 (Continued) [facility] NAME: MARYLOU MARTINEZ Radiology Department PHYS: Shu Garcia [address] : 1975 AGE: 44 SEX: F [place], [place] [address] LOC: F.RAD PHONE #: [phone] EXAM DATE: 12/04/2020 STATUS: REG CLI FAX #: [phone] RAD NO: [id number] Page 3 Signed Report - US TRANSVAGINAL 2018-12-22 Patient Name: W/PELVIS 09:00:00 MARYLOU MARTINEZ Unit No: [id number] EXAMS: CPT CODE: [id number] US TRANSVAGINAL W/PELVIS 13878 PELVIC ULTRASOUND, 12/22/2018: COMPARISON: Prior pelvic ultrasound [...] CC: Technologist: Rony Olivia RDMS, T Probe: [id number] Trnscrbd D/ (0900) [id number] Orig Print D/T: S: 12/22/2018 (0903) [facility] NAME: MARYLOU MARTINEZ Radiology Department PHYS: [facility] MD [address] : 1975 AGE: 42 SEX: F [place], [place] [address] LOC: ArabellaRAD PHONE #: [phone] EXAM DATE: 12/22/2018 STATUS: REG CLI FAX #: [phone] RAD NO: [id number] Page 1 Signed Report Patient Name: MARYLOU MARTINEZ Unit No: [id number] EXAMS: CPT CODE: [id number] US TRANSVAGINAL W/PELVIS 54745 (Continued) [facility] NAME: MARYLOU MARTINEZ Radiology Department PHYS: [facility] Flores MD [address] : 1975 AGE: 42 SEX: F [place] [address] LOC: ArabellaRAD PHONE #: [phone] EXAM DATE: 12/22/2018 STATUS: REG CLI FAX #: [phone] RAD NO: [id number] Page 2 Signed Report - US PELVIS 2018-12-22 Patient Name: COMPLETE 09:00:00 MARYLOU MARTINEZ Unit No: [id number] EXAMS: CPT CODE: [id number] US PELVIS COMPLETE 47008 PELVIC ULTRASOUND, 12/22/2018: COMPARISON: Prior pelvic ultrasound [...] Rony Olivia RDMS, RVT Probe: Trnscrbd D/ (0900) [email or web address] Orig Print D/T: S: 12/22/2018 (0903) [facility] NAME: MARYLOU MARTINEZ Radiology Department PHYS: Va Vaca MD [address] : 1975 AGE: 42 SEX: [place] [address] LOC: Jackie.RAD PHONE #: [phone] EXAM DATE: 12/22/2018 STATUS: REG CLI FAX #: [phone] RAD NO: [id number] Page 1 Signed Report Patient Name: FARRUKH MARTINEZJEAN-PIERRE Hi Unit No: [id number] EXAMS: CPT CODE: [id number] US PELVIS COMPLETE 61302 (Continued) [facility] [facility] NAME: MARYLOU MARTINEZ Radiology Department PHYS: Va Vaca MD [address] : 1975 AGE: 42 SEX: F [place] [address] LOC: Jackie.RAD PHONE #: [phone] EXAM DATE: 12/22/2018 STATUS: BRADLEY SUERO FAX #: [phone] RAD NO: [id number] Page 2 Signed Report
--- OUTSIDE RECORDS SUMMARY | 2022-05-30 22:58 | XMS REPORT | Clinical Summary ---
:1975 Author Organization [facility] Address [address] [place] [address] Care Team Providers Name Role Phone Golden Rucker MD Unavailable Kyle Easley MD Primary Care Provider Allergies Active Allergy Reactions Severity Noted Date Comments Gluten GI Intolerance Medications Medication Sig Dispensed Refills Start Date End Date Status levothyroxine (SYNTHROID, TK 1 T PO QD 11 10/31/2017 Active LEVOTHROID) 200 mcg tablet esomeprazole (NexIUM) 20 MG 0 10/30/2015 Active capsule Active Problems Problem Noted Date Abdominal or pelvic swelling, mass, or lump, right low er quadrant 12/21/2017 Renal mass 12/08/2017 Overview: Added automatically from request for payton madhuri [id number] Comments Yes Surgical History Surgery Date Site/Laterality Comments STOMACH SURGERY 10/15/2015 - gastric sleeve 11/14/2015 TUBAL LIGATION 06/16/2009 - 06/15/2010 ENDOMETRIAL ABLATION 06/16/2010 - 06/15/2011 SECTION, LOW x 2 TRANSVERSE PA LAPAROSCOPY SURG 01/23/2018 Abdomen/Left Procedure: R OBOTIC PARTIAL NEPHRECTOMY ASSISTED PAR TIAL NEPHRECTOMY with IOUS; Surgeon: Kyle Easley MD; Location: [place] IN OR; Service: UROLOGY Medical History Medical History Date Comments Migraine [id number] only occurred a few times during that period Sinusitis 2012 Celiac disease 2010 Uterine leiomyoma 2018 Scoliosis 2018 Disorder of thyroid gland 1997 Bruce's Anxiety self managed; situat ional Family History Medical History Relation Name Comments Diabetes Father Tacho Lucero Hypertension Father Tacho Lucero Breast cancer Maternal Cousin 1 +liver mets?ge netic testing Pancreatic cancer Maternal Grandmother Geraldine Pereira Skin cancer Maternal Uncle 2 -Other cancer Mother America Lucero dx thymoma Skin cancer Mother America Lucero sees derm q. 6 m onths; removed from [facility] m at [facility] Immunodeficiency Nephew 1 Kidney cancer Other 1 dx incidentally Kidney cancer Other 4 +mets Immunodeficiency Paternal Cousin 3 Diabetes Paternal Grandfather Law Lucero Hypertension Paternal Grandfather Law Lucero Breast cancer Paternal Grandmother Leida Sroianos Stroke Paternal Grandmother Leida Sorianos Hodgkin's lymphoma Paternal Uncle Relation Name Status Comments Daughter Alive Father Tacho Lucero Alive Maternal Cousin 1 Alive Maternal Cousin 2 Alive Maternal Cousin 3 Alive Maternal Grandfather d. infectio n Maternal Grandmother Geraldine Pereira (Age 75) Maternal Uncle 1 (Age 60) Maternal Uncle 2 Alive +possible addit ional primary Mother America Lucero Alive dx other benign brain tumor, 47, treat ed at [facility] Nephew 1 Alive Nephew 2 Alive Other 1 Alive Other 2 Alive Other 3 Alive Other 4 (Age 65) Other 5 Alive no known history Other 6 Alive Paternal Aunt (Age 60-65) Paternal Cousin 1 Alive Paternal Cousin 2 Alive Paternal Cousin 3 d. infancy Paternal Grandfather Law Lucero (Age 60-69) Paternal Grandmother Leida Lucero (Age 78) Paternal Uncle (Age 60-65) Sister Alive Son Alive Social History Tobacco Use Types Packs/Day Years Used Date Smoking Tobacco: Never Smokeless Tobacco: Never Alcohol Use Standard Drinks/Week Comments Yes 0 (1 standard drink = 0.6 oz pure alcoho l) Comments Yes Sex Assigned at Date Recorded Not on file Obstetrics History Para Term AB IAB SAB Ectopic Multiple Living Live Births 3 2 Date Outcome GA Total Labor/2nd/3rd Weight Sex Delivery Anes PTL Alisha A 1 A5 Name Clin Labor Para Para Current Comments LMP was 11/28/2017. Regular monthly menst rual cycles. No history of abnormal Pap, last pap 2014 NIL/HPV negative per patient re port. with 2 c/sections. BTL. 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
[2022-05-31] MEDS ORDERED: MORPHINE 2 MG/ML SYR ONE (00:09)
[2022-05-31] MEDS ORDERED: KETOROLAC 30 MG/ML INJ ONE (00:10)
[2022-05-31] MEDS ORDERED: NA CHLORIDE 0.9% 1,000 ML ONE ×2 (00:10→02:01)
[2022-05-31] MEDS ORDERED: NA CHLORIDE 0.9% 50 ML IV ONE (00:10)
[2022-05-31] MEDS ORDERED: CEFTRIAXONE 1000 MG/VIAL ONE (00:10)
[2022-05-31] MEDS ORDERED: ONDANSETRON 4 MG/2 ML VIAL ONE ×3 (00:11→10:06)
[2022-05-31 00:45] LABS: Absolute Lymphocytes (CBC) 1.6 K/uL (0.7-4.9); Lymphocytes % 14.9 % (15.3-44.8); MCV 87.5 fL (80-100); RBC Red Blood Cell Count 4.92 M/uL (3.86-4.86)
[2022-05-31 00:50] LABS: Protime INR 0.95
[2022-05-31 01:09] LABS: ALT/SGPT 25 U/L (13-56); Albumin 3.7 g/dL (3.4-5.0); Alkaline Phosphatase 65 U/L (45-117); BUN Blood Urea Nitrogen 15 mg/dL (7-18); Bicarbonate 24 mmol/L (21-32); Bilirubin Total 0.5 mg/dL (0.2-1.0); Glomerular Filtration Rate 77 ml/min (=/>90); Glucose Level 109 mg/dL (74-106); Lipase 206 U/L (73-393); NT PRO-BNP 11 pg/mL (<125); Protein, Total 8.3 g/dL (6.4-8.2); Sodium Level 137 mmol/L (136-145); Troponin High Sensitivity 4.4 pg/mL (<58.9)
[2022-05-31 01:11] LABS: AST/SGOT 42 U/L (15-37); Bilirubin Direct < 0.1 mg/dL (0-0.2); Magnesium 1.8 mg/dL (1.6-2.4); Potassium 4.2 mmol/L (3.5-5.1)
--- NOTE | 2022-05-31 01:17 | ER ---
Nurse's Notes [facility] Name: Leigh Ann Rothman Age: 46 yrs Sex: Female : 1975 Arrival Date: 05/30/2022 Time: 23:00 Bed 6 Private MD: Diagnosis: Acute cholecystitis;Other cholelithiasis with obstruction;Epigastric abdominal tenderness Presentation: 05/31 00:00 Chief complaint: Patient states: "I'm having abdominal pain and it's really bad". as6 Coronavirus screen: At this time, the client does not indicate any symptoms associated with coronavirus-19. Ebola Screen: No symptoms or risks identified at this time. Initial Sepsis Screen: Does the patient meet any 2 criteria? No. Patient's initial sepsis screen is negative. Does the patient have a suspected source of infection? No. Patient's initial sepsis screen is negative. Risk Assessment: Do you want to hurt yourself or someone else? Patient reports no desire to harm self or others. Onset of symptoms was May 30, 2022. 00:00 Method Of Arrival: Ambulatory as6 00:00 Acuity: RODNEY 3 as6 Historical: - Allergies: 00:42 No Known Allergies; as6 - Home Meds: 00:42 Nexium 20 mg Oral cpDR 2 caps once daily [Active]; Synthroid 200 mcg Oral tab 1 tab as6 once daily [Active]; - PMHx: 00:42 GERD; Hypothyroidism; kidney cancer; as6 - PSHx: 00:42 section; as6 - Immunization history:: Client reports receiving the 2nd dose of the Covid vaccine, moderna Flu vaccine is not up to date. - Social history:: Smoking status: Patient denies any tobacco usage or history of. - Family history:: not pertinent. - Hospitalizations: : No recent hospitalization is reported. Screenin:03 Abuse screen: Denies threats or abuse. Denies injuries from another. Nutritional as6 screening: No deficits noted. Tuberculosis screening: No symptoms or risk factors identified. Fall Risk Total Engle Fall Scale indicates No Risk (0-24 pts). 03:46 [facility] ED Fall Risk Assessment (Adult) Score/Fall Risk Level 0 - 2 = Low Risk. Humpty as6 Dumpty Scale Fall Assessment Tool (age< 18yrs) Fall Risk Score/ Level Low Fall Risk: </= 11 points. Assessment: 00:00 General: Appears uncomfortable, Behavior is cooperative, restless. Pain: Complains of as6 pain in epigastric area Pain radiates to right upper quadrant. Neuro: Level of Consciousness is awake, alert, obeys commands, Oriented to person, place, time, situation. Cardiovascular: Capillary refill < 3 seconds Patient's skin is warm and dry. Respiratory: Respiratory effort is even, unlabored. GI: Reports upper abdominal pain, nausea. Vital Signs: 05/30 23:45 BP 144 / 86; Pulse 83; Resp 20; Temp 97.5; Pulse Ox 100% ; Weight 94.35 kg; Height 5 rv1 ft. 6 in. (167.64 cm); Pain 1010; 05/31 00:59 BP 141 / 87; Pulse 71; Resp 16 S; Pulse Ox 100% on R/A; as6 02:00 BP 120 / 78; Pulse 73; Resp 22 S; Pulse Ox 97% on R/A; as6 03:47 BP 120 / 76; Pulse 70; Resp 22 S; Pulse Ox 100% on R/A; as6 05/30 23:45 Body Mass Index 33.57 (94.35 kg, 167.64 cm) rv1 ED Course: 05/30 23:00 Patient arrived in ED. es 23:30 Bienvenido Tejada MD is Attending Physician. damaso 23:40 Markie Prado, ESTEFANIA is Primary Nurse. as6 05/31 00:42 Triage completed. as6 00:43 Arm band placed on. as6 00:47 US Abdomen Limited In Process Unspecified. EDMS 00:49 XRAY Chest (1 view) In Process Unspecified. EDMS 00:58 Inserted saline lock: 20 gauge in right antecubital area, using aseptic technique. as6 Blood collected. ultrasound guided. 01:14 Can Gonzales MD is Hospitalizing Provider. damaso 01:31 CT Stone Protocol In Process Unspecified. EDMS 03:27 Missed attempt(s): 20 gauge in right upper arm. Bleeding controlled, band aid applied, as6 catheter tip intact. 03:27 Accessed peripheral vein via ultrasound, utilizing dynamic ultrasound technique as6 Powerglide midline 18g 10cm to left upper arm using hospital protocol with good blood return and flushes easily pt tolerated well. 03:45 Placed in gown. Bed in low position. Call light in reach. Side rails up X2. as6 03:45 No provider procedures requiring assistance completed. Patient admitted, IV remains in as6 place. Administered Medications: 00:58 Drug: NS 0.9% 1000 ml Route: IV; Rate: 1 bolus; Site: right antecubital; as6 00:58 Drug: Ketorolac 30 mg Route: IVP; Site: right antecubital; as6 00:59 Drug: morphine 2 mg Route: IVP; Infused Over: 4 mins; Site: right antecubital; as6 00:59 Drug: Rocephin (cefTRIAXone) 1 grams Route: IV; Rate: per protocol; Site: right as6 antecubital; 00:59 Drug: Zofran (Ondansetron) 4 mg Route: IVP; Site: right antecubital; as6 01:57 Not Given (Duplicate Order): morphine 2 mg IVP once over 4 mins as6 03:27 Not Given (Patient Refused): GI Cocktail without - (Maalox Suspension 30 ml, as6 Lidocaine Liquid 2 % 15 ml) PO once 03:28 Not Given (Patient Refused): morphine 4 mg IVP once over 4 mins as6 03:34 Drug: Zosyn (piperacillin-tazobactam) 3.375 grams Route: IVPB; Infused Over: 60 mins; as6 Site: left upper arm; 03:57 Drug: NS 0.9% 1000 ml Route: IV; Rate: 125 ml/hr; Site: left upper arm; as6 Medication: 03:45 VIS not applicable for this client. as6 Outcome: 01:16 Decision to Hospitalize by Provider. damaso 03:46 Admitted to ER Hold. Please see [facility] for further documentation. as6 03:46 Condition: stable 03:46 Instructed on the need for admit. 07:33 Patient left the ED. iw Signatures: Dispatcher [employer] Bienvenido Thibodeaux MD MD cha Salyer, Yolie Koch, RN ESTEFANIA iw Markie Prado RN RN as6 America Sahni [facility]
--- NOTE | 2022-05-31 01:17 | EDPHYS ---
Physician Documentation [facility] Name: Leigh Ann Rothman Age: 46 yrs Sex: Female : 1975 Arrival Date: 05/30/2022 Time: 23:00 Bed 6 Private MD: CRUZ Physician Bienvenido Tejada HPI: 05/31 01:03 This 46 yrs old Female presents to ER via Ambulatory with complaints of damaso Abdominal Pain, Back Pain, Flank Pain. 01:03 The patient presents with pain that is acute, with no known mechanism of injury. The damaso symptoms are located in the ruq pain. Onset: The symptoms/episode began/occurred last night. The pain does not radiate. Associated signs and symptoms: The patient has no apparent associated signs or symptoms. The problem was sustained from unknown cause. Modifying factors: The patient symptoms are alleviated by nothing, the patient symptoms are aggravated by food. Severity of symptoms: At their worst the symptoms were moderate, in the emergency department the symptoms have improved, mildly. The patient has experienced similar episodes in the past, multiple times. Historical: - Allergies: 00:42 No Known Allergies; as6 - Home Meds: 00:42 Nexium 20 mg Oral cpDR 2 caps once daily [Active]; Synthroid 200 mcg Oral tab 1 tab as6 once daily [Active]; - PMHx: 00:42 GERD; Hypothyroidism; kidney cancer; as6 - PSHx: 00:42 section; as6 - Immunization history:: Client reports receiving the 2nd dose of the Covid vaccine, moderna Flu vaccine is not up to date. - Social history:: Smoking status: Patient denies any tobacco usage or history of. - Family history:: not pertinent. - Hospitalizations: : No recent hospitalization is reported. ROS: 01:03 Constitutional: Negative for fever, chills, and weight loss, Eyes: Negative for injury, damaso pain, redness, and discharge, ENT: Negative for injury, pain, and discharge, Neck: Negative for injury, pain, and swelling, Cardiovascular: Negative for chest pain, palpitations, and edema, Respiratory: Negative for shortness of breath, cough, wheezing, and pleuritic chest pain, Back: Negative for injury and pain, : Negative for injury, bleeding, discharge, and swelling, MS/Extremity: Negative for injury and deformity, Skin: Negative for injury, rash, and discoloration, Neuro: Negative for headache, weakness, numbness, tingling, and seizure, Psych: Negative for depression, anxiety, suicide ideation, homicidal ideation, and hallucinations, Allergy/Immunology: Negative for hives, rash, and allergies, Endocrine: Negative for neck swelling, polydipsia, polyuria, polyphagia, and marked weight changes, Hematologic/Lymphatic: Negative for swollen nodes, abnormal bleeding, and unusual bruising. 01:03 Abdomen/GI: Positive for abdominal pain, nausea and vomiting, of the right upper quadrant. Exam: 01:03 Constitutional: This is a well developed, well nourished patient who is awake, alert, damaso and in no acute distress. Head/Face: Normocephalic, atraumatic. Eyes: Pupils equal round and reactive to light, extra-ocular motions intact. Lids and lashes normal. Conjunctiva and sclera are non-icteric and not injected. Cornea within normal limits. Periorbital areas with no swelling, redness, or edema. ENT: Nares patent. No nasal discharge, no septal abnormalities noted. Tympanic membranes are normal and external auditory canals are clear. Oropharynx with no redness, swelling, or masses, exudates, or evidence of obstruction, uvula midline. Mucous membranes moist. Neck: Trachea midline, no thyromegaly or masses palpated, and no cervical lymphadenopathy. Supple, full range of motion without nuchal rigidity, or vertebral point tenderness. No Meningismus. Chest/axilla: Normal chest wall appearance and motion. Nontender with no deformity. No lesions are appreciated. Cardiovascular: Regular rate and rhythm with a normal S1 and S2. No gallops, murmurs, or rubs. Normal PMI, no JVD. No pulse deficits. Respiratory: Lungs have equal breath sounds bilaterally, clear to auscultation and percussion. No rales, rhonchi or wheezes noted. No increased work of breathing, no retractions or nasal flaring. Back: No spinal tenderness. No costovertebral tenderness. Full range of motion. Skin: Warm, dry with normal turgor. Normal color with no rashes, no lesions, and no evidence of cellulitis. MS/ Extremity: Pulses equal, no cyanosis. Neurovascular intact. Full, normal range of motion. Neuro: Awake and alert, GCS 15, oriented to person, place, time, and situation. Cranial nerves II-XII grossly intact. Motor strength 5/5 in all extremities. Sensory grossly intact. Cerebellar exam normal. Normal gait. Psych: Awake, alert, with orientation to person, place and time. Behavior, mood, and affect are within normal limits. 01:03 Respiratory: the patient does not display signs of respiratory distress, Respirations: normal, Breath sounds: are clear throughout, no bronchial sounds, no decreased breath sounds, no rales, rhonchi, no stridor, no wheezing. 01:03 Abdomen/GI: Inspection: abdomen appears normal, Bowel sounds: normal, Palpation: mild abdominal tenderness, in the right upper quadrant, Indicators: Ivory's sign Liver: no appreciated palpable abnormalities, Hernia: not appreciated. 01:16 ECG was reviewed by the Attending Physician. [facility] Vital Signs: 05/30 23:45 BP 144 / 86; Pulse 83; Resp 20; Temp 97.5; Pulse Ox 100% ; Weight 94.35 kg; Height 5 rv1 ft. 6 in. (167.64 cm); Pain 10/10; 05/31 00:59 BP 141 / 87; Pulse 71; Resp 16 S; Pulse Ox 100% on R/A; as6 02:00 BP 120 / 78; Pulse 73; Resp 22 S; Pulse Ox 97% on R/A; as6 03:47 BP 120 / 76; Pulse 70; Resp 22 S; Pulse Ox 100% on R/A; as6 05/30 23:45 Body Mass Index 33.57 (94.35 kg, 167.64 cm) rv1 MDM: 05/30 23:30 Patient medically screened. [facility] 05/31 01:10 Differential diagnosis: Cholelithiasis Hydronephrosis Neoplasm Osteoarthritis Peptic damaso Ulcer Ureterolithiasis. Data reviewed: vital signs, nurses notes, lab test result(s), EKG, radiologic studies, CT scan, ultrasound. Data interpreted: cafeteria monitor: rate is 71 beats/min, rhythm is regular, Pulse oximetry: on room air is 100 %. Test interpretation: by ED physician or midlevel provider: ECG, plain radiologic studies. Counseling: I had a detailed discussion with the patient and/or guardian regarding: the historical points, exam findings, and any diagnostic results supporting the discharge/admit diagnosis, lab results, radiology results, the need for further work-up and treatment in the hospital. 05/30 23:31 Order name: Basic Metabolic Panel; Complete Time: 01:14 [facility] 05/30 23:31 Order name: CBC with Diff; Complete Time: 00:52 [facility] 05/30 23:31 Order name: LFT's; Complete Time: 01:14 [facility] 05/30 23:31 Order name: Magnesium; Complete Time: 01:14 [facility] 05/30 23:31 Order name: NT PRO-BNP; Complete Time: 01:14 [facility] 05/30 23:31 Order name: PT-INR; Complete Time: 00:52 [facility] 05/30 23:31 Order name: Troponin HS; Complete Time: 01:14 [facility] 05/30 23:31 Order name: XRAY Chest (1 view) [facility] 05/30 23:31 Order name: CT Stone Protocol [facility] 05/30 23:32 Order name: Urine Microscopic Only [facility] 05/30 23:32 Order name: Lipase; Complete Time: 01:14 [facility] 05/31 01:52 Order name: SARS RAPID; Complete Time: 07:07 as6 05/31 07:29 Order name: Urine Dipstick-Ancillary EDDE 05/31 07:30 Order name: Urine --Ancillary (enter results) 05/30 23:31 Order name: EKG; Complete Time: 23:31 [facility] 05/30 23:31 Order name: Cardiac monitoring; Complete Time: 00:43 [facility] 05/30 23:31 Order name: EKG - Nurse/Tech; Complete Time: 01:16 [facility] 05/30 23:31 Order name: IV Saline Lock; Complete Time: 00:58 [facility] 05/30 23:31 Order name: Labs collected and sent; Complete Time: 00:43 [facility] 05/31 00:17 Order name: US Abdomen Limited [facility] 05/30 23:31 Order name: O2 Per Protocol; Complete Time: 00:43 [facility] 05/30 23:31 Order name: O2 Sat Monitoring; Complete Time: 00:44 [facility] EC:16 Rate is 68 beats/min. Rhythm is regular. QRS Clements is Normal. MT interval is normal. QRS damaso interval is normal. QT interval is normal. No Q waves. T waves are Normal. No ST changes noted. Clinical impression: Normal ECG and No evidence of ischemia. Interpreted by me. Reviewed by me. Administered Medications: 00:58 Drug: NS 0.9% 1000 ml Route: IV; Rate: 1 bolus; Site: right antecubital; as6 00:58 Drug: Ketorolac 30 mg Route: IVP; Site: right antecubital; as6 00:59 Drug: morphine 2 mg Route: IVP; Infused Over: 4 mins; Site: right antecubital; as6 00:59 Drug: Rocephin (cefTRIAXone) 1 grams Route: IV; Rate: per protocol; Site: right as6 antecubital; 00:59 Drug: Zofran (Ondansetron) 4 mg Route: IVP; Site: right antecubital; as6 01:57 Not Given (Duplicate Order): morphine 2 mg IVP once over 4 mins as6 03:27 Not Given (Patient Refused): GI Cocktail without - (Maalox Suspension 30 ml, as6 Lidocaine Liquid 2 % 15 ml) PO once 03:28 Not Given (Patient Refused): morphine 4 mg IVP once over 4 mins as6 03:34 Drug: Zosyn (piperacillin-tazobactam) 3.375 grams Route: IVPB; Infused Over: 60 mins; as6 Site: left upper arm; 03:57 Drug: NS 0.9% 1000 ml Route: IV; Rate: 125 ml/hr; Site: left upper arm; as6 Disposition Summary: 05/31/22 01:16 Hospitalization Ordered Hospitalization Status: Observation damaso Provider: Can Gonzales cha Condition: Stable damaso Problem: new damaso Symptoms: have improved damaso Bed/Room Type: Standard [facility] Location: [facility] ER HOLD(05/31/22 01:55) Room Assignment: ERHOLD-(05/31/22 01:55) Diagnosis - Acute cholecystitis damaso - Other cholelithiasis with obstruction damaso - Epigastric abdominal tenderness damaso Forms: - Medication Reconciliation Form damaso - SBAR form damaso Signatures: Dispatcher [employer] EDEv Greco RN RN Bienvenido Mendez MD MD cha Slawson, Ashby, RN RN as6 Corrections: (The following items were deleted from the chart) 01:55 01:16 Telemetry/MedSurg (observation) damaso 01:55 01:16 damaso
[2022-05-31] MEDS ORDERED: MAGNES/ALUMIN/SIMET 30ML UCUP ONE (02:00)
[2022-05-31] MEDS ORDERED: PIPERACIL/TAZO 3.375 GM VIAL IV ONE (02:01)
[2022-05-31] MEDS ORDERED: MORPHINE 4 MG/ML SYR ONE (02:01)
[2022-05-31] MEDS ORDERED: NA CHLORIDE 0.9% 100 ML IV ONE (02:01)
[2022-05-31] MEDS ORDERED: LIDOCAINE VISCOUS 2% SOLN 15 ML UDC ONE (02:01)
[2022-05-31 02:44] LABS: SARS-CoV-2 Antigen Rapid Res Negative (Negative)
[2022-05-31] MEDS ORDERED: NA CHLORIDE 0.9% 2,000 ML ONE (03:36)
[2022-05-31] MEDS ORDERED: ACETAMINOPHEN 500 MG TAB PO PRN (05:10)
[2022-05-31] MEDS ORDERED: NA CHLORIDE 0.9% 1,000 ML IV SCH (05:10)
[2022-05-31] MEDS ORDERED: ONDANSETRON 4 MG/2 ML VIAL IV PRN (05:10)
[2022-05-31 05:20] VITALS: BMI 33.5
[2022-05-31] MEDS ORDERED: MORPHINE 2 MG/ML SYR IV PRN (06:00)
[2022-05-31 07:29] LABS: Urine Blood Negative (Negative); Urine Glucose Negative (Negative); Urine Protein Trace (Negative); Urine Specific Gravity >=1.030 (1.005-1.030); Urine pH 5.5 (5.0-7.0)
[2022-05-31] MEDS ORDERED: Ringers Lactate 1,000 ML IV ONE (07:32)
[2022-05-31 07:41] VITALS: O2SAT 100
--- NOTE | 2022-05-31 07:42 | P.HP ---
Date of Service: 05/31/22 Chief complaint: Abdominal pain History of present Illness: 46-year-old female comes in with biliary colic that started last night. She had a similar episode a couple of weeks ago. Patient had right upper quadrant pain radiating to the back associated with nausea, vomiting, bloating, belching and heartburn. Pain was postprandial in nature. Patient does not have any blood per rectum dysuria or hematuria. Patient denies sore throat, runny nose, cough, headaches, dizziness, chest pain, fever or chills. Review of systems: Otherwise unremarkable Past medical history: Kidney cancer Past surgical history: Partial right kidney removal, gastric sleeve surgery, bilateral tubal ligation, Allergies: Ceftriaxone Social history: Patient denies smoking or drinking Family history: Noncontributory Vital signs: Stable Physical exam: Awake alert oriented x3 Head and neck: Cranial nerves II through XII grossly within normal limits, no neck masses, no JVD, throat clear and neck supple. Patient has no evidence of icterus. Chest: Clear Heart: S1-S2 Abdomen: Soft, nondistended, positive bowel sounds with right upper quadrant tenderness. No rebound, rigidity or guarding. Extremity: Neurovascular intact, nontender Neuro: Nonfocal Diagnostic data: White count is normal with left shift. LFTs and lipase are within normal limits. Ultrasound shows cholelithiasis and CAT scan shows a distended gallbladder. Assessment: Acute cholecystitis and cholelithiasis Plan/recommendation: Admit, n.p.o., IV fluid, IV antibiotics and to the OR for laparoscopic cholecystectomy possible open. Patient understands risk benefits alternatives and agrees to procedure. CC:
[2022-05-31] MEDS ORDERED: BUPIVACAINE 0.5% PF 10 ML VIAL ONE (07:55)
[2022-05-31] MEDS ORDERED: INFLUENZA VACCINE (for 6+ mo) 0.5 ML DOSE IMVAC ONE (08:00)
[2022-05-31] MEDS ORDERED: propofoL 200 MG/20 ML VIAL IV ONE (08:29)
[2022-05-31] MEDS ORDERED: LIDOCAINE 2% MPF 5 ML VIAL ONE (08:30)
[2022-05-31] MEDS ORDERED: ROCURONIUM 50 MG/5 ML VIAL IV ONE (08:30)
[2022-05-31] MEDS ORDERED: FENTANYL CITR 250 MCG/5 ML ONE (08:30)
[2022-05-31] MEDS ORDERED: MIDAZOLAM HCL 2 MG/2 ML INJ ONE (08:30)
[2022-05-31] MEDS ORDERED: NEOSTIGMINE 1 MG/ML -10 ML VIAL ONE (08:30)
[2022-05-31] MEDS ORDERED: GLYCOPYRROLATE 0.2 MG/ML SYR ONE (08:30)
[2022-05-31] MEDS ORDERED: dexAMETHasone 10 MG/ML VIAL ONE (08:40)
[2022-05-31] MEDS ORDERED: FAMOTIDINE 20 MG/2 ML VIAL IV SCH (09:00)
[2022-05-31] MEDS ORDERED: PIPER TAZO 3.375 GM in NA CHLORIDE 0.9% 100 ML IV SCH (09:00)
--- NOTE | 2022-05-31 09:51 | P.OP ---
Date of Service: 05/31/22 Preop diagnosis: Acute cholecystitis and cholelithiasis Postop diagnosis: Same Procedure performed: Laparoscopic cholecystectomy Surgeon: Can Gonzales MD Assistant At Surgery: Poonam LING Estimated blood loss: Minimal Specimen: Gallbladder Findings: As above Anesthesia: General Complications: None Drains: None Fluids and blood products: Nonapplicable Disposition: Recovery room Operative note: Patient brought to the OR and placed in the supine position. General anesthesia begun. Patient prepped and draped in the usual sterile fashion. Marcaine 0.5% infiltrated locally. 15 blade used to make a 1 cm infraumbilical midline incision. Subcutaneous tissue divided and fascia identified and divided. #1 Vicryl stay suture placed. Peritoneal cavity entered with sharp and blunt dissection. 12 mm trocar placed into the Peritoneal cavity under direct vision. Pneumoperitoneum established. 3 5 mm trochars placed in the upper abdomen. 1 trocar placed in the epigastric region just to the right of midline. 2 trochars placed in the right subcostal region. Laparoscopy revealed a distended, thick-walled gallbladder consistent with acute cholecystitis. Fundus retracted superiorly. Infundibulum identified retracted inferolaterally. Cystic duct and cystic artery clearly identified with blunt dissection. Clips placed and both structures divided. Gallbladder dissected from the liver bed with cautery. Bleeding on the liver bed controlled with cautery. Gallbladder retrieved through the umbilicus via Endo Catch bag. Right upper quadrant irrigated. Effluent clear. No evidence of bleeding or bile leakage appreciated. All trochars removed under direct vision. Stay sutures tied to each other reapproximate the fascial defect. Subcutaneous was irrigated. Bleeding controlled cautery. 3-0 chromic used approximate subcutaneous tissue. And 3-0 chromic also used to close skin. Sterile dressing applied. Patient awakened and taken to recovery room in good general condition. CC:
[2022-05-31] MEDS ORDERED: HYDROCODONE/APAP 7.5/325 MG TAB PO PRN (09:54)
[2022-05-31] MEDS: HYDROMORPHONE HCL 1 MG/ML INJ ONE ×2 (10:10→10:15)
[2022-05-31] MEDS ORDERED: HYDROCODONE/APAP 7.5/325 MG TAB ONE (11:00)
[2022-05-31 11:29] VITALS: BP 136/71; TEMP 97.3
--- NOTE | 2022-05-31 17:42 | RAD REPORT ---
EXAM DESCRIPTION: US - Abdomen Exam Limited - 05/31/2022 12:46 am CLINICAL HISTORY: The patient is 46 years old and is Female; ABD PAIN , reported negative sonographi c Ivory sign TECHNIQUE: Real-time ultrasound of the right upper quadrant with image documentation. COMPARISON: No relevant prior studies available. FINDINGS: LIVER: Hepatopetal portal venous flow. No intrahepatic bile duct dilation. Unremarkable as visualized. GALLBLADDER: Multiple posterior shadowing stones demonstrated within the gallbladder lumen with no associated gallbladder or pericholecystic edema/free fluid. COMMON BILE DUCT: Unremarkable as visualized. No stones. No dilation. Common bile duct measures 0.3 cm in diameter. IMPRESSION: Cholelithiasis with no sonographic findings to suggest acute cholecystitis. If there is high clinical suspicion for acute cholecystitis, or to evaluate for chronic cholecystitis or biliary dyskinesia, further evaluation by HIDA scan could be performed. Electronically signed by: Jose Singh MD 05/31/2022 1:05 AM VASCULAR MANAGER Due to temporary technical issues with the PACS/Fluency reporting system, reports are being signed by the in house radiologists without review as a courtesy to insure prompt reporting. The interpreting radiologist is fully responsible for the content of the report.
--- NOTE | 2022-05-31 18:01 | RAD REPORT ---
EXAM DESCRIPTION: RAD - Chest Single View - 05/31/2022 12:47 am CLINICAL HISTORY: The patient is 46 years old and is Female; ABDOMINAL DISTENTION TECHNIQUE: Frontal view of the chest. COMPARISON: No relevant prior studies available. FINDINGS: LUNGS: Unremarkable. No consolidation. PLEURAL SPACE: Unremarkable. No pleural effusion. No pneumothorax. HEART: Unremarkable. No cardiomegaly. MEDIASTINUM: Unremarkable. BONES/JOINTS: Unremarkable. IMPRESSION: Normal chest x-ray. Electronically signed by: Jose Singh MD 05/31/2022 1:01 AM HIRED HAND Due to temporary technical issues with the PACS/Fluency reporting system, reports are being signed by the in house radiologists without review as a courtesy to insure prompt reporting. The interpreting radiologist is fully responsible for the content of the report.
--- NOTE | 2022-05-31 18:04 | RAD REPORT ---
EXAM DESCRIPTION: CT - Stone Protocol - 05/31/2022 6:19 am CLINICAL HISTORY: 46 years Female flank COMPARISON: Prior study dated October 25, 2019 TECHNIQUE: Images were obtained in axial, sagittal, and coronal planes. No intravenous or oral contr ast was administered. This exam was performed according to our departmental dose-optimization program which includes use of Automated Exposure Control, adjustment of the mA and/or kV according to patient size and/or use of i terative reconstruction technique. FINDINGS: No abnormality involving the liver, spleen, pancreas, or adrenal glands bilaterally. Surgi destinee clips at epigastric region. Moderately distended gallbladder. Small hiatal hernia. Atrophic johnson es tail of pancreas unchanged. No obstructing renal or ureteral calculi bilaterally. No hydronephrosis bilaterally. Postsurgical damaso nges anterior inferior left kidney unchanged. Unremarkable bladder. Appendix within normal limits. Mucosal thickening involving the colon. No bowel obstruction or perfor ation. No acute osseous abnormality. No abnormality lower lungs bilaterally. No dilatation of abdominal aorta. No adenopathy or abnormal fluid collections seen. IMPRESSION: No obstructing renal or ureteral calculi bilaterally. No hydronephrosis bilaterally. Jany pected colitis. Moderate gallbladder distention. Electronically signed by: Elsa Chavez MD 05/31/2022 1:55 AM SUPERVISOR SANDBLASTER Due to temporary technical issues with the PACS/Fluency reporting system, reports are being signed by the in house radiologists without review as a courtesy to insure prompt reporting. The interpreting radiologist is fully responsible for the content of the report.
--- NOTE | 2022-06-05 14:05 | EKG ---
Test Date: 2022-05-31 Test Time: 01:12:46 Dry Pan Operator: KENISHA MEASUREMENT RESULTS: Intervals: Rate: 68 DE: 160 QRSD: 84 QT: 394 QTc: 418 [place]: P: 32 DE: 160 QRS: -5 T: 19 INTERPRETIVE STATEMENTS: Normal sinus rhythm Normal ECG No previous ECG available for comparison Electronically Signed On 06-05-22 14:01:50 TANKERMAN by Jose Alejandro Kauffman
== END 2022-05-31 13:10 | disposition home or self-care (01) ==
LOC: ER 22:55 → ERHOLD 05-31 01:19
PROVIDERS: ADMIT Surgery; ATTEND Surgery
PROC: 0FT44ZZ Resection of Gallbladder, Percutaneous Endoscopic Approach (ICD-10-PCS; principal; 2022-05-31 08:30)
DX: K80.00 Calculus of gallbladder with acute cholecystitis without obstruction (principal); Z85.528 Personal history of other malignant neoplasm of kidney; Z98.84 Bariatric surgery status; Z20.822 Contact with and (suspected) exposure to COVID-19
CPT/HCPCS: 93005; 85025; 80048; 36415; 83735; 81025; 85610; 80076; 88304; 81003; 84484; 83690; 83880; 76377; 74176; 71045; 76705; 99285; 87811; 47562; J2704; J2710; J2543 ×2; J2001; J2250; J3010; J1100; J2270; J1170; J7120; J7030 ×3; J2405 ×3

== ENCOUNTER 2022-11-11 09:36 | Emergency (ER) | payer OTHER ==
--- OUTSIDE RECORDS SUMMARY | 2022-11-11 09:39 | XMS REPORT | Clinical Summary ---
:1975 Author Organization [facility] Address [address] [place] [address] Care Team Providers Name Role Phone Golden [...] Added automatically from request for payton madhuri [id number] Comments Yes Surgical History Surgery Date Site/Laterality Comments STOMACH SURGERY 10/15/2015 - gastric sleeve 11/14/2015 TUBAL LIGATION 06/16/2009 - 06/15/2010 ENDOMETRIAL ABLATION 06/16/2010 - 06/15/2011 SECTION, LOW x 2 TRANSVERSE MS LAPAROSCOPY SURG 01/23/2018 Abdomen/Left Procedure: R OBOTIC PARTIAL NEPHRECTOMY ASSISTED PAR TIAL NEPHRECTOMY with IOUS; Surgeon: Kyle Easley MD; Location: [place] IN OR; Service: UROLOGY Medical History Medical History Date Comments Migraine [id number] only occurred a few times during that [...] m onths; removed from [facility] at [facility] Immunodeficiency Nephew 1 Kidney cancer Other 1 dx incidentally Kidney cancer Other 4 +mets Immunodeficiency Paternal Cousin 3 Diabetes Paternal Grandfather Law [place] Hypertension Paternal Grandfather Law [place] Breast cancer Paternal Grandmother Leida Sorianos Stroke Paternal Grandmother Leida Sorianos Hodgkin's lymphoma [...] benign brain tumor, 49, treat ed at [facility] Nephew 1 Alive Nephew 2 Alive Other [...] Vaccination (#1) 06/29/1978 Results Not on fileafter 11/11/2021 Insurance Payer Benefit Plan / Subscriber ID Effective Dates Phone Addre ss Type Group [employer] POS [id number] 2015-Present [id number] [place] [address] Advance Directives Code Status Date Activated Date Inactivated Comments Full Code 01/23/2018 11:05 AM 01/24/2018 8:14 PM Care Teams Sheet Rocker Relationship Specialty Start Date End Date Golden Rucker MD PCP - External Referring Family Practice 12/03/[address] [place] [id number] Kyle Easley MD PCP - General Urology 12/04/[address] [place] [id number]
--- OUTSIDE RECORDS SUMMARY | 2022-11-11 09:40 | XMS REPORT | Continuity of Care Document ---
:[address] [facility] t Address [address] [facility] [address] [place] [address] Care Team Providers Name Role Phone Kyle Easley MD Primary Care Physician VAL RODRIGUEZ Attending Clinician Unavailable Milka Tejada MA Attending Clinician Unavailable Shu Ball Attending Clinician Unavailable IVANA CLARK Attending Clinician Unavailable Lab, Adc Fam Pob I Attending Clinician Unavailable Alba Landeros Attending Clinician ALBA CLAY Attending Clinician Unavailable Doctor Unassigned, [place] Attending Clinician Unavailable Elsa Dickerson Admitting Clinician Unavailable Payers Payer Name Policy Type Policy Number Effective Date Expiration Date S ource [facility] [id number] 2018 00:00:[address] [facility] [place] [id number] 2018 00:00:00 OUT OF STATE Problems Condition Condition Condition Status Onset Resolution Last Treating Co mments Source Name Details Category Date Date Treatment Clinician Date Abdominal Abdominal Disease Active Uni vers or pelvic or pelvic -08 ity of swelling, swelling, 00:00: [place] mass, or mass, or 00 lump, lump, Anderso right right n lower lower Cancer quadrant quadrant Center Renal mass Renal mass Disease Active Overview : Univers 6-25 Formattin ity of 00:00: g of this [place] 00 note MD might be Anderso different n from the Cancer original. Center Added automatic ally from request for surgery [id number] No known No known Disease [place] active active Health problems problems Low back Low back Problem Active 2019-01-13 Memoria pain pain 02:45:25 l Active [place] Problem 01/13/2019 [facility] Other Other Problem Active 2019-01-13 Memor ia specified specified 02:45:25 l abnormal abnormal Qasim n findings findings of blood of blood chemistry chemistry Active Problem 01/13/2019 [facility] Other Other Problem Active 2019-01-13 Matt roro chronic chronic 02:45:25 l pain pain [place] Active Problem 01/13/2019 [facility] Pain in Pain in Problem Active 2019-01-13 Me moria joint, joint, 02:45:25 l multiple multiple Qasim n sites sites Active Problem 01/13/2019 [facility] Bruce' Bruce Problem Active 2019-01-13 Memoria s disease 's disease 02:45:25 l Active [place] Problem 01/13/2019 [facility] Allergies, Adverse Reactions, Alerts Allergy Allergy Status Severity Reaction(s) Onset Inactive Treating Comm ents Source Name Type Date Date Clinician No Known DA Active [facility] [place] No Known DA Active U 0 [facility] [place] Gluten Propensi Active GI Univers ty to Intolerance ity o f adverse [place] reaction MD [facility] NO KNOWN Drug Active Univers ALLERGIE Class ity of [facility] [place] Family History Family Member Diagnosis Comments Start Date Stop Date Source Natural father Hypertension [facility] [place] [facility] Natural father Diabetes [facility] Maternal cousin [facility] Maternal [facility]aternal [facility]reatic [facility] Maternal uncle [facility] Natural mother -Other cancer [facility] [place] [facility] Natural mother Skin cancer Universit y [facility] Nephew Immunodeficiency [facility] [place] [facility] Other Kidney cancer [facility] Paternal aunt [facility] Paternal cousin [facility] [place] [facility] Paternal Diabetes [facility] MD [facility] [place] Paternal Hypertension University o [facility] MD [facility] Paternal Breast cancer [facility] MD [facility] [place] Paternal Stroke [facility] MD Silvano quevedoon [facility] [place] Paternal uncle Hodgkin's lymphoma [facility] [place] [facility] Natural sister [facility] Natural son [facility] Natural daughter [facility] [place] [facility] Social History Social Habit Start Date Stop Date Quantity Comments Source ASSERTION [facility] History SDOH IN Health [facility] Alcohol Std Drinks History [facility] Health Alcohol Binge Exposure to Not sure IN Health SARS-CoV-2 (event) Alcohol Comment 2021-07-17 2021-07-17 social IN Health 00:00:00 00:00:00 Tobacco use and 2021-07-17 2021-07-17 Smokeless tobacco IN Health exposure 00:00:00 00:00:00 non-user Alcohol intake 2019-09-13 2019-09-13 Current drinker Unive rsity of 00:00:00 00:00:00 of alcohol [place] MD [facility] Sex Assigned At [birth year] Universit y of 00:00:00 00:00:00 [place] [facility] Smoking Status Start Date Stop Date Source Unknown if ever smoked [facility] [place] Never smoked tobacco IN Health Medications Ordered Filled Start Stop Current [...] Take 25 mg U T (Zoloft) 25 1-21 by mouth 1 He alth MG tablet [...] ne 5-18 QD ity of (SYNTHROID, 00:00: [place] LEVOTHROID) 00 200 mcg Anderso tablet [facility] levothyroxi Yes TK 1 T PO U nivers ne 5-18 QD ity of (SYNTHROID, 00:00: [place] LEVOTHROID) 00 200 mcg Anderso tablet [facility] esomeprazol Yes Univer s e (NexIUM) 5-16 ity of 20 MG 00:00: [place] capsule 00 [email or web address] esomeprazol Yes Univer s e (NexIUM) 5-16 ity of 20 MG 00:00: [place] capsule 00 [facility] Procedures This patient has no known procedures. Plan of Care Planned Activity Planned Date Details Comments Source Future Scheduled 2022-06-18 COVID-19 Vaccination Uni versity [facility] [place] Test 18:27:03 (#1) [code = COVID-19 And caroline Cancer Vaccination (#1)] Center Future Scheduled 2022-05-30 COVID-19 Vaccination Uni vers[facility] [place] Test 22:57:35 (#1) [code = COVID-19 And caroline Cancer Vaccination (#1)] Center Encounters Start End Encounter Admission Attending Care Care Encounter Source Date/Time Date/Time Type Type Clinicians Facility Department ID 2022-11-11 Outpatient [id number] Memoria 09:39:51 [id number] Doug [id number] 2022-05-30 Outpatient [id number] Memoria 22:57:44 [id number] Doug [id number] 2021-06-26 Outpatient JENNIFER [facility] [id number] [place] 10:12:44 [facility] 2021-08-07 2021-08-07 Telephone Milka Tejada [facility] [id number] [place] 00:00:00 00:00:00 Milka Tejada SUGAR [id number] [facility] [id number] [address] 4 [phone] AND 4 WOMENS 2020-12-04 2020-12-04 Outpatient TATIANA Ball [facility] [id number] [facility] 07:06:00 07:06:00 Shu [id number] [facility] 2020-10-30 2020-10-30 Outpatient Velasquez CLARK, [facility] [id number] Univers 10:20:00 10:20:00 IVANA [facility] 2020-10-02 2020-10-02 Outpatient [facility] [id number] Univers 10:20:00 10:20:00 [facility] 2020-07-12 2020-07-12 Laboratory Lab, [facility] [id number] 11:52:45 12:12:45 Only Fam Pob I Health [id number] [place] 4.2.7.2.686 Professio [phone] nal [address] 2020-07-12 2020-07-12 Laboratory Lab, [facility] Fam Pob I [facility] 1.2. 840.114 [id number] Univers 11:52:45 12:12:45 Only Anene, [facility] 350.1.13.10 ity [facility] 4.2.7.2.686 Marvin as Professio [phone] [place] dical formerly [facility], [facility] [address] 2020-07-12 2020-07-12 Outpatient Velasquez [facility] [id number] Univers 11:40:00 11:40:00 ALBA xochiltjames of [facility] 2020-07-12 2020-07-12 Letter Doctor KADIE Esteves.2.840.114 [id number] 00:00:00 00:00:00 (Out) Unassigned, ALEX [facility].1.13.10 [facility] 4.2.7.2.686 [phone] [facility] 2020-07-12 2020-07-12 Letter Doctor KADIE [id number] Univers 00:00:00 00:00:00 (Out) Unassigned, ALEX 350.1.13.10 [place] [id number] Marvin as [phone] [address] 2018-10-19 2018-10-19 Outpatient [facility] - [id number] eClinic 10:17:00 10:17:00 Rheumatol Rheumatolog alWorks ogy y [facility] Results Test Description Test Time Test Comments Results Result Sourc e Comments - US PELVIS 2020-12-04 COMPLETE 00:00:00 [facility] : 1975 Sex: F Patient Name: MARYLOU MARTINEZ Unit No: [id number] EXAMS: CPT CODE: [id number] US PELVIS COMPLETE 03679 PROCEDURE INFORMATION: Exam: US Duplex Artery or [...] cm and contains a dominant follicle. The [facility] NAME: MARYLOU MARTINEZ Radiology Department PHYS: Shu Garcia [address] : 1975 AGE: 44 SEX: F [place], [place] [address] LOC: ArabellaRAD PHONE #: [phone] EXAM DATE: 12/04/2020 STATUS: REG CLI FAX #: [phone] RAD NO: [id number] Page 1 Signed Report (CONTINUED) Patient Name: MARYLOU MARTINEZ Unit No: [id number] EXAMS: CPT CODE: [id number] US PELVIS COMPLETE 17084 (Continued) Intraperitoneal space: No free fluid is [...] Orig Print D/T: S: 12/04/2020 (0905) [facility] NAME: MARYLOU MARTINEZ Radiology Department PHYS: Shu Garcia [address] : 1975 AGE: 44 SEX: F [place] [address] LOC: ArabellaRAD PHONE #: [phone] EXAM DATE: 12/04/2020 STATUS: REG CLI FAX #: [phone] RAD NO: [id number] Page 2 Signed Report Patient Name: MARYLOU MARTINEZ Unit No: [id number] EXAMS: CPT CODE: [id number] US PELVIS COMPLETE 51762 (Continued) The [facility] NAME: MARYLOU MARTINEZ Radiology Department PHYS: Shu Garcia [address] : 1975 AGE: 44 SEX: F [place], [place] [address] LOC: F.RAD PHONE #: [phone] EXAM DATE: 12/04/2020 STATUS: REG CLI FAX #: [phone] RAD NO: [id number] Page 3 Signed Report - US TRANSVAGINAL 2020-12-04 W/PELVIS 00:00:00 [facility] [place] [facility] : 1975 Sex: F Patient Name: MARYLOU MARTINEZ Unit No: [id number] EXAMS: CPT CODE: [id number] US TRANSVAGINAL W/PELVIS 32924 PROCEDURE INFORMATION: Exam: US Duplex Artery or [...] cm and contains a dominant follicle. The [facility] NAME: MARYLOU MARTINEZ Radiology Department PHYS: Shu Garcia [address] : 1975 AGE: 44 SEX: F [place], [place] [address] LOC: F.RAD PHONE #: [phone] EXAM DATE: 12/04/2020 STATUS: REG CLI FAX #: [phone] RAD NO: [id number] Page 1 Signed Report (CONTINUED) Patient Name: MARYLOU MARTINEZ Unit No: [id number] EXAMS: CPT CODE: [id number] US TRANSVAGINAL W/PELVIS 19909 (Continued) Intraperitoneal space: No free fluid is [...] MD CC: Technologist: Jillian Gipson RDMS Probe: [id number] Trnscrbd D/ (904) [facility] Orig Print D/T: S: 12/04/2020 (904) The [facility] NAME: MARYLOU MARTINEZ Radiology Department PHYS: Shu Garcia [address] : 1975 AGE: 44 SEX: F [place] [address] LOC: F.RAD PHONE #: [phone] EXAM DATE: 12/04/2020 STATUS: REG CLI FAX #: [phone] RAD NO: [id number] Page 2 Signed Report Patient Name: MARYLOU MARTINEZ Unit No: [id number] EXAMS: CPT CODE: [id number] US TRANSVAGINAL W/PELVIS 77831 (Continued) The [facility] NAME: MARYLOU MARTINEZ Sussy Radiology Department PHYS: Shu Garcia [address] : 1975 AGE: 44 SEX: F [place] [address] LOC: F.RAD PHONE #: [phone] EXAM DATE: 12/04/2020 STATUS: REG CLI FAX #: [phone] RAD NO: [id number] Page 3 Signed Report - DUP AB/PEL/SC/LTD 2020-12-04 00:00:00 [facility]ARTINE[facility] : 1975 Sex: F Patient Name: MARYLOU MARTINEZ Unit No: [id number] EXAMS: CPT CODE: [id number] DUP AB/PEL/SC/LTD 01041 PROCEDURE INFORMATION: Exam: US Duplex Artery or [...] cm and contains a dominant follicle. The [facility] NAME: MARYLOU MARTINEZ Radiology Department PHYS: Shu Garcia [address] : 1975 AGE: 44 SEX: F [place], [place] [address] LOC: F.RAD PHONE #: [phone] EXAM DATE: 12/04/2020 STATUS: REG CLI FAX #: [phone] RAD NO: [id number] Page 1 Signed Report (CONTINUED) Patient Name: MARYLOU MARTINEZ Unit No: [id number] EXAMS: CPT CODE: [id number] [facility] AB/PEL/SC/LTD 62109 (Continued) Intraperitoneal space: No free fluid is [...] Orig Print D/T: S: 12/04/2020 (904) The [facility] NAME: MARYLOU MARTINEZ Radiology Department PHYS: Shu Garcia [address] : 1975 AGE: 44 SEX: F [place] [address] LOC: ArabellaRAD PHONE #: [phone] EXAM DATE: 12/04/2020 STATUS: REG CLI FAX #: [phone] RAD NO: [id number] Page 2 Signed Report Patient Name: MARYLOU MARTINEZ Unit No: [id number] EXAMS: CPT CODE: [id number] DUP AB/PEL/SC/LTD 66765 (Continued) The [facility] NAME: MARYLOU MARTINEZ Radiology Department PHYS: Shu Garcia [address] : 1975 AGE: 44 SEX: F [place] [address] LOC: Jackie.RAD PHONE #: [phone] EXAM DATE: 12/04/2020 STATUS: REG CLI FAX #: [phone] RAD NO: [id number] Page 3 Signed Report - US TRANSVAGINAL 2018-12-22 Patient Name: W/PELVIS 09:00:00 MARYLOU MARTINEZ Unit No: [id number] EXAMS: CPT CODE: [id number] US TRANSVAGINAL W/PELVIS 48755 PELVIC ULTRASOUND, 12/22/2018: COMPARISON: Prior pelvic ultrasound [...] CC: Technologist: Rony Olivia RDMS, T Probe: [id number] Trnscrbd D/ (0900) [id number] Orig Print D/T: S: 12/22/2018 (0903) The [facility] NAME: FARRUKH MARTINEZJEAN-PIERRE Hi Radiology Department PHYS: Va Vaca MD [address] : 1975 AGE: 42 SEX: F [place], [place] [address] LOC: Jackie.RAD PHONE #: [phone] EXAM DATE: 12/22/2018 STATUS: REG CLI FAX #: [phone] RAD NO: [id number] Page 1 Signed Report Patient Name: MARYLOU MARTINEZ Unit No: [id number] EXAMS: CPT CODE: [id number] US TRANSVAGINAL W/PELVIS 04213 (Continued) The [facility] NAME: MAXIM MARTINEZANGEL Hi Radiology Department PHYS: Va Vaca MD [address] : 1975 AGE: 42 SEX: F [place], [place] [address] LOC: LENNY PHONE #: [phone] EXAM DATE: 12/22/2018 STATUS: REG CLI FAX #: [phone] RAD NO: [id number] Page 2 Signed Report - US PELVIS 2018-12-22 Patient Name: COMPLETE 09:00:00 MARYLOU MARTINEZ Unit No: [id number] EXAMS: CPT CODE: [id number] US PELVIS COMPLETE 39648 PELVIC ULTRASOUND, 12/22/2018: COMPARISON: Prior pelvic ultrasound [...] Orig Print D/T: S: 12/22/2018 (0903) [facility] NAME: MARYLOU MARTINEZ Radiology Department PHYS: ALPESHSkyeVa Flores MD [address] : 1975 AGE: 42 SEX: F [place] [address] LOC: ArabellaRAD PHONE #: [phone] EXAM DATE: 12/22/2018 STATUS: REG CLI FAX #: [phone] RAD NO: [id number] Page 1 Signed Report Patient Name: MARYLOU MARTINEZ Unit No: [id number] EXAMS: CPT CODE: [id number] US PELVIS COMPLETE 08422 (Continued) The [facility] NAME: MARYLOU MARTINEZ Radiology Department PHYS: Va Vaca MD [address] : 1975 AGE: 42 SEX: F [place], [place] [address] LOC: Jackie.RAD PHONE #: [phone] EXAM DATE: 12/22/2018 STATUS: REG CLI FAX #: [phone] RAD NO: [id number] Page 2 Signed Report
--- NOTE | 2022-11-11 11:41 | RAD REPORT ---
[facility] DES[facility] 11:25 am CLINICAL HISTORY: left leg pain COMPARISON: None FINDINGS: Echogenic material consistent with acute thrombus is present within the left popliteal and left posterior tibial veins. The veins are not compressible. No blood flow seen Left common femoral, superficial femoral, greater saphenous are compressible and demonstrate augmenta tion. Doppler demonstrates good flow. Grayscale, color and spectral analysis performed on all vessels IMPRESSION: Occlusive acute thrombus left popliteal and left posterior tibial veins
[2022-11-11 12:22] LABS: Absolute Lymphocytes (CBC) 1.8 K/uL (0.7-4.9); Hematocrit 41.8 % (36.0-45.0); Lymphocytes % 22.4 % (15.3-44.8); MCV 87.9 fL (80-100); MPV 7.4 fL (7.6-11.3); RBC Red Blood Cell Count 4.75 M/uL (3.86-4.86)
[2022-11-11 13:01] LABS: Protime INR 0.93
[2022-11-11 13:11] LABS: ALT/SGPT 23 U/L (13-56); AST/SGOT 18 U/L (15-37); Albumin 3.5 g/dL (3.4-5.0); Alkaline Phosphatase 92 U/L (45-117); BUN Blood Urea Nitrogen 12 mg/dL (7-18); Bicarbonate 23 mEq/L (21-32); Bilirubin Total 0.5 mg/dL (0.2-1.0); Glomerular Filtration Rate 90 ml/min (=/>90); Glucose Level 78 mg/dL (74-106); NT PRO-BNP 60 pg/mL (<125); Potassium 3.8 mEq/L (3.5-5.1); Sodium Level 134 mEq/L (136-145)
[2022-11-11 13:14] LABS: Troponin High Sensitivity < 3.0 pg/mL (<58.9)
--- NOTE | 2022-11-11 13:22 | EDPHYS ---
Physician Documentation [facility] Name: Leigh Ann Rothman Age: 46 yrs Sex: Female : 1975 Arrival Date: 11/11/2022 Time: 09:36 Bed 13 Private MD: Fady Ramos ED Physician Dio Osborn HPI: 11/11 09:48 This 46 yrs old Female presents to ER via Unassigned with complaints of Leg bs3 Swelling, Leg Pain. 09:48 The patient presents with pain, that is acute. The complaints affect the left calf. bs3 Context: The problem was sustained at an unknown site, the patient can fully bear weight, the patient is able to ambulate. 46yo f no pertitent medical hx presents with left leg pain and swelling, denies other associated symptoms. She thinks she may have had trauma 1 week ago, but developed the swelling recently, worse with palpation, better with rest, no associated shortness of breath, no numbness, tingling, or weakness, never had this before. . 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 - Social history:: Smoking status: Patient denies any tobacco usage or history of. ROS: 09:48 Constitutional: Negative for fever, chills bs3 09:48 All other systems are negative. Exam: 09:48 Constitutional: This is a well developed, well nourished patient who is awake, alert, bs3 and in no acute distress. Head/Face: Normocephalic, atraumatic. Eyes: Pupils equal round and reactive to light, extra-ocular motions intact. Lids and lashes normal. ENT: mmm, no posterior phyarngeal erythema Chest/axilla: Normal chest wall appearance and motion. Nontender with no deformity. No lesions are appreciated. Cardiovascular: Regular rate and rhythm with a normal S1 and S2. symmetric pulses in upper extremities Respiratory: Lungs have equal breath sounds bilaterally, clear to auscultation, no respiratory distress Skin: Warm, dry with normal turgor. Normal color with no rashes, no lesions, and no evidence of cellulitis. MS/ Extremity: Pulses equal, no cyanosis. Neurovascular intact. Full, normal range of motion. Mild swelling of left leg, she has slight calf tenderness Neuro: Awake and alert, GCS 15, oriented to person, place, time, and situation. Cranial nerves II-XII grossly intact. Motor strength 5/5 in all extremities. Sensory grossly intact. 12:43 Normal sinus rhythm at [address] elevation or depression QTc 418 no right axis deviation bs3 no signs of right heart strain Vital Signs: 10:00 BP 123 / 91; Pulse 90; Resp 17; Temp 98.2; Pulse Ox 100% ; Weight 98.88 kg; Height 5 jl7 ft. 6 in. ; Pain 7/10; 12:47 BP 134 / 88; Pulse 74; Resp 16; Pulse Ox 99% on R/A; mb9 10:00 Body Mass Index 35.19 (98.88 kg, 167.64 cm) jl7 10:00 Pain Scale: Adult jl7 MDM: 09:42 Patient medically screened. bs3 09:48 Differential diagnosis: contusion, dvt, muscle strain. Data reviewed: vital signs, bs3 nurses notes. ED course: Low rule out deep vein thrombosis for less likely advised outpatient follow-up return precautions if work-up negative advised further work-up for pelvic pathology, or other causes. . 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 12:02 Independent interpretation of the following test(s) in the Emergency Department bs3 Radiology Department Ultrasound: My interpretation is dvt in popliteal vein. 13:21 ED course: Labs normal will start on apixaban advised strict return precautions. bs3 11/11 11:30 Order name: CBC with Diff; Complete Time: 12:43 3 11/11 11:30 Order name: Comprehensive Metabolic Panel; Complete Time: 13:19 3 11/11 11:30 Order name: PT-INR; Complete Time: 13:19 3 11/11 11:30 Order name: Ptt, Activated; Complete Time: 13:19 3 11/11 11:31 Order name: Test, Urine; Complete Time: 13:19 3 11/11 11:39 Order name: BNP; Complete Time: 13:19 3 11/11 11:39 Order name: Troponin High Sensitivity; Complete Time: 13:19 3 11/11 09:47 Order name: US Extremity Venous Unilateral Ltd; Complete Time: 11:48 [facility] 11/11 11:39 Order name: EKG - Nurse/Tech; Complete Time: 12:25 [facility] 11/11 12:26 Order name: Labs - recollect needed: recollect blue top; Complete Time: 12:47 bd Administered Medications: 13:33 Drug: Apixaban Starter Pack 10 mg Route: PO; mb9 Disposition Summary: 11/11/22 13:21 Discharge Ordered Location: Home bs3 Problem: new bs3 Symptoms: have improved bs3 Condition: Stable bs3 Diagnosis - Pain in left leg bs3 - Acute embolism and thrombosis of unspecified deep veins of left lower extremity bs3 Followup: bs3 - With: - When: 5 - 6 days - Reason: Re-evaluation by your physician Followup: bs3 - With: - When: 1 week - Reason: Recheck today's complaints Discharge Instructions: - Discharge Summary Sheet bs3 - Deep Vein Thrombosis bs3 - Musculoskeletal Pain bs3 Forms: - Medication Reconciliation Form bs3 - Thank You Letter bs3 - Antibiotic Education bs3 - Prescription Opioid Use bs3 Prescriptions: - apixaban 5 mg Oral tablet - take 1 tablet by ORAL route every 12 hours to be started after the initial 7 bs3 day treatment; 42 tablet; Refills: 0, Product Selection Permitted - apixaban 5 mg Oral tablet - take 2 tablet by ORAL route 2 times per day for 7 days; 28 tablet; Refills: 0, bs3 Product Selection Permitted Signatures: Dispatcher [employer] Sandra Biswas Jahala, RN RN jl7 Dio Osborn MD MD bs3 Anastasiya Chamorro, RN RN mb9
--- NOTE | 2022-11-11 13:22 | ER ---
[facility] Name: Leigh Ann Rothman Age: 46 yrs Sex: Female : 1975 Arrival Date: 11/11/2022 Time: 09:36 Bed 13 Private MD: Fady Ramos Diagnosis: Pain in left leg;Acute embolism and thrombosis of unspecified deep veins of left lower extremity Presentation: 11/11 10:00 Chief complaint: Patient states: Fell on right knee last Friday, no bruising but jl7 pain to left calf and behind the knee. Coronavirus screen: At this time, the client does not indicate any symptoms associated with coronavirus-19. Ebola Screen: No symptoms or risks identified at this time. Initial Sepsis Screen: Does the patient meet any 2 criteria? No. Patient's initial sepsis screen is negative. Does the patient have a suspected source of infection? No. Patient's initial sepsis screen is negative. Risk Assessment: Do you want to hurt yourself or someone else? Patient reports no desire to harm self or others. Onset of symptoms was November 06, 2022. 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 - Social history:: Smoking status: Patient denies any tobacco usage or history of. Screenin:15 [facility] [place] ED Fall Risk Assessment (Adult) History of falling in the last 3 months, mb9 including since admission No falls in past 3 months (0 pts) Confusion or Disorientation No (0 pts) Intoxicated or Sedated No (0 pts) Impaired Gait No (0 pts) Mobility Assist Device Used No (0 pt) Altered Elimination No (0 pt) Score/Fall Risk Level 0 - 2 = Low Risk Oriented to surroundings, Maintained a safe environment, Educated pt \T\ family on fall prevention, incl call for assistance when getting out of bed. Abuse screen: Denies threats or abuse. Nutritional screening: No deficits noted. Tuberculosis screening: No symptoms or risk factors identified. Assessment: 12:16 General: Appears in no apparent distress. Behavior is calm, cooperative. Pain: ap3 Complains of pain in left calf Pain began gradually. Neuro: Level of Consciousness is awake, alert, obeys commands, Oriented to person, place, time, situation. Cardiovascular: Patient's skin is warm and dry. Respiratory: Airway is patent Respiratory effort is even, unlabored, Respiratory pattern is regular, symmetrical. Vital Signs: 10:00 BP 123 / 91; Pulse 90; Resp 17; Temp 98.2; Pulse Ox 100% ; Weight 98.88 kg; Height 5 jl7 ft. 6 in. ; Pain 7/10; 12:47 BP 134 / 88; Pulse 74; Resp 16; Pulse Ox 99% on R/A; mb9 10:00 Body Mass Index 35.19 (98.88 kg, 167.64 cm) jl7 10:00 Pain Scale: Adult jl7 ED Course: 09:39 Patient arrived in ED. mr 09:39 Fady Ramos is Private Physician. mr 09:42 Dio Osborn MD is Attending Physician. bs3 10:02 Triage completed. jl7 10:02 Arm band placed on right wrist. Patient placed in waiting room, Patient notified of jl7 wait time. 11:27 US Extremity Venous Unilateral Ltd In Process Unspecified. EDMS 11:50 Iveth Steele, RN is Primary Nurse. ap3 12:15 Placed in gown. Bed in low position. Call light in reach. Side rails up X 1. Client mb9 placed on continuous cardiac and pulse oximetry monitoring. NIBP monitoring applied. environmental monitoring specialist on. 12:15 Inserted saline lock: 22 gauge in left antecubital area, using aseptic technique. Blood ap3 collected. 12:16 No provider procedures requiring assistance completed. mb9 12:26 EKG done, by ED staff, reviewed by Dio Osborn MD. mb9 13:21 Fady Ramos is Referral Physician. bs3 13:21 Ariadne Rivera MD is Referral Physician. bs3 13:35 IV discontinued, intact, bleeding controlled, No redness/swelling at site. Pressure ap3 dressing applied. Administered Medications: 13:33 Drug: Apixaban Starter Pack 10 mg Route: PO; mb9 Medication: 12:15 VIS not applicable for this client. mb9 Outcome: 13:21 Discharge ordered by . bs3 13:34 Discharged to home ambulatory. ap3 13:34 Condition: good 13:34 Discharge instructions given to patient, Instructed on discharge instructions, follow up and referral plans. medication usage, Demonstrated understanding of instructions, follow-up care, medications, Prescriptions given X 2. 13:36 Patient left the ED. ap3 Signatures: Dispatcher [employer] Anastasiya Sahu Jahala, RN RN jl7 Iveth Steele RN RN ap3 Dio Osborn MD MD bs3 Anastasiya Chamorro RN RN mb9
[2022-11-11] MEDS ORDERED: APIXABAN 5 MG TABLET ONE (13:39)
[2022-11-11 13:43] VITALS: TEMP 98.2
[2022-11-11 13:45] VITALS: BP 134/88; O2SAT 99
--- NOTE | 2022-11-13 14:41 | EKG ---
Test Date: 2022-11-11 Test Time: 12:22:40 [employer]: MB MEASUREMENT RESULTS: Intervals: Rate: 72 VT: 160 QRSD: 80 QT: 382 QTc: 418 [place]: P: 34 VT: 160 QRS: -39 T: 24 INTERPRETIVE STATEMENTS: Normal sinus rhythm Left axis deviation Abnormal ECG Compared to ECG 05/31/2022 01:12:46 Left-axis deviation now present Electronically Signed On 11-13-22 14:38:20 CDT by Jose Alejandro Kauffman
== END 2022-11-11 13:36 | disposition home or self-care (01) ==
LOC: ER 09:36
DX: I82.402 Acute embolism and thrombosis of unspecified deep veins of left lower extremity (principal); E03.9 Hypothyroidism, unspecified
CPT/HCPCS: 36415; 80053; 81025; 83880; 84484; 85025; 85610; 85730; 93005; 93971; 99284